=== PATIENT | female | born 1935 | race Caucasian/White ===

== ENCOUNTER 2016-05-29 10:12 | Inpatient (IN) | payer OTHER ==
[2016-04-30 10:53] VITALS: BMI 29.0
--- NOTE | 2016-04-30 11:34 | PAT Medication Instructions ---
Service Date Apr 30, 2016. Current Home Medication List Ascorbic Acid (Vitamin C 500 mg) Ascorbic Acid (Vitamin C), Unknown Dose PO QAM B-Complex W/ Folic Acid (Super B Complex Maxi), 1 TAB PO QAM Cholecalciferol (Vitamin D), 1 TAB PO QAM Diltiazem HCl (Diltiazem Cd), 1 TAB PO QAM Gabapentin (Neurontin), 100 MG PO QPM Lisinopril (Zestril), 30 MG PO QPM Magnesium Oxide (Mag-Ox), 750 MG PO BID Metoprolol Tartrate (Lopressor) (Lopressor), 0.5 TAB PO BID Medication Instructions For Your Scheduled Surgery - Hold the following medications the morning of surgery: Ascorbic Acid (Vitamin C 500 mg) Ascorbic Acid (Vitamin C), Unknown Dose PO QAM Magnesium Oxide (Mag-Ox), 750 MG PO BID Cholecalciferol (Vitamin D), 1 TAB PO QAM B-Complex W/ Folic Acid (Super B Complex Maxi), 1 TAB PO QAM - Take the following medications the morning of surgery with a sip of water: Diltiazem HCl (Diltiazem Cd), 1 TAB PO QAM Metoprolol Tartrate (Lopressor) (Lopressor), 0.5 TAB PO BID - Hold the following medications as scheduled the night before surgery: Lisinopril (Zestril), 30 MG PO QPM - Take the following medications as scheduled the night before surgery: Gabapentin (Neurontin), 100 MG PO QPM Metoprolol Tartrate (Lopressor) (Lopressor), 0.5 TAB PO BID Magnesium Oxide (Mag-Ox), 750 MG PO BID If you have any questions please call us at [phone] (Mai Dominguez PA-C) or [phone] or [phone]
--- NOTE | 2016-04-30 12:17 | DIAGNOSTIC IMAGING REPORT ---
CHEST PREADMISSION(PA/LAT) CLINICAL HISTORY: PAT preoperative evaluation COMPARISON STUDY: No previous studies for comparison. FINDINGS: The bones soft tissues and hemidiaphragms are normal. The cardiomediastinal silhouette is normal. The lungs are clear. The pulmonary vasculature is normal. IMPRESSION: Negative chest. Electronically signed by: Marshall Thomas M.D. 04/30/2016 12:15 PM
[2016-04-30 12:18] LABS: BASO % 0.5 %; BASO ABS # 0.03 K/uL (0-0.2); COMPLETE YES; EOS % 5.7 %; HEMATOCRIT 36.3 % (37-47); IG% 0.3 %; LYMPH % 30.6 %; LYMPH ABS # 1.94 K/uL (1.2-3.4); MEAN CELL VOLUME 93.1 fL (80-100); MEAN CORPUSCULAR HGB CONC 33.3 g/dl (32-36); MEAN PLATELET VOLUME 9.8 fL (7.4-10.4); NEUT % 53.9 %; PLATELET COUNT 201 K/uL (130-400); WHITE BLOOD COUNT 6.34 K/uL (4.8-10.8)
[2016-04-30 12:26] LABS: PROTHROMBIN TIME (PATIENT) 10.3 SECONDS (9.0-12.0)
[2016-04-30 12:28] LABS: URINE APPEARANCE CLEAR (CLEAR); URINE BILIRUBIN NEG (NEG); URINE COLOR YELLOW; URINE NITRITE NEG (NEG); URINE SPECIFIC GRAVITY 1.005 (1.000-1.030); UROBILINOGEN NEG (NEG)
[2016-04-30 12:44] LABS: ESTIMATED AVERAGE GLUCOSE 123 mg/dl; HA1C FLAG Normal (Normal); MANUAL MICROSCOPIC REQUIRED? NO; REVIEW REQ? NO
--- NOTE | 2016-05-28 15:53 | HISTORY & PHYSICAL EXAMINATION ---
DATE OF ADMISSION: 05/29/2016 CHIEF COMPLAINT: Right knee pain. HISTORY OF PRESENT ILLNESS: The patient is an 81-year-old female with known osteoarthritis about her right knee. She has pain with activities of daily living including prolonged weightbearing and standing activities. She has difficulty kneeling, bending, or squatting activities. She now desires to proceed with right total knee arthroplasty. PAST MEDICAL HISTORY: Hypertension, irregular heartbeat, osteoarthritis, obesity. PAST SURGICAL HISTORY: None. MEDICATIONS: Gabapentin 300 mg 3 times daily, diltiazem ER 120 mg daily, lisinopril 20 mg daily, metoprolol succinate ER 100 mg daily, magnesium oxide 500 mg 1/2 tablet daily. ALLERGIES: No known drug allergies. SOCIAL HISTORY AND REVIEW OF SYSTEMS: Noncontributory. PHYSICAL EXAMINATION: GENERAL: Well-nourished, well-developed female who appears stated age. HEENT: Normocephalic, atraumatic, extraocular movements intact, oropharynx pink and moist. NECK: Supple without adenopathy. LUNGS: Clear to auscultation bilaterally. HEART: Regular rate and rhythm. ABDOMEN: Soft, nontender, nondistended. EXTREMITIES: The upper extremities are within normal limits. The right knee has a valgus alignment. Range of motion from 0-110 degrees. She has mild crepitus with range of motion. X-RAYS: X-rays were reviewed. She has a valgus-aligned knee. She has severe osteoarthritis about the lateral compartment with bone on bone arthritis. She has moderate degenerative change about the medial and patellofemoral compartments. She has osteophyte formation about the lateral joint line. ASSESSMENT: Right knee degenerative joint disease. PLAN: Risks versus benefits were discussed. Consent was obtained. The patient's primary care physician is Dr. Villalobos. Will proceed with right total knee arthroplasty upon preop workup and medical clearance.
[2016-05-29] VITALS (9 sets, daily range): BP systolic 149–184; BP diastolic 71–84; PULSE 55–75; TEMP 35.8–36.6; O2SAT 93–98; Ht 175.3 cm; Wt 86.2 kg
[~2016-05-29] VITALS: Ht 175.3 cm; Wt 86.2 kg
[~2016-05-29 10:12] MED LIST: ACETAMINOPHEN 500 MG TAB PO SCH; ASCA500 PO; ASCO500C43 PO; B-CO-25 PO; BUPIVACAINE 0.25% 30 ML VIAL ONE; BUPIVACAINE 0.5 % 5 MG/1 ML PF 10ML VIAL ONE; CEFAZOLIN 2000 MG/60 ML D5W 60 ML IV SCH; CHOL100010 PO; CRDCD120 PO; CeleBREX 200 MG CAP PO SCH; DEXAMETHASONE 4 MG TAB PO SCH; FAMOTIDINE 20 MG TAB PO SCH; GABA-112 PO; GABAPENTIN 300 MG CAP PO SCH; LACTATED RINGER'S 1000ML IV SCH; LACTATED RINGER'S 500 ML IV SCH; LISI1TAB3 PO; MAGN400T6 PO; METO100T14 PO; METOCLOPRAMIDE HCL 10 MG TAB PO SCH; OXYCODONE HCL 10 MG TABCR (OXYCONTIN) PO SCH; ROPIVACAINE 5MG/ML 30 ML 150 MG, BUPIVACAINE/EPINEPHR 0.5% MPF 30 ML, KETOROLAC TROMETH... INFIL SCH
[2016-05-29] MEDS ORDERED: FENTANYL CITRATE INJ 50 MCG/1 ML 2 ML VIAL ONE (10:29)
[2016-05-29] MEDS ORDERED: LIDOCAINE HCL 2% 2 ML VIAL (20MG/ML) ONE (10:29)
[2016-05-29] MEDS ORDERED: MIDAZOLAM HCL 1 MG/ML 2ML VIAL ONE (10:29)
[2016-05-29] MEDS ORDERED: PROPOFOL IV EMULSION 10 MG/ML 20 ML VIAL IV ONE (10:29)
--- NOTE | 2016-05-29 10:58 | History & Physical Bridge Note ---
H&P Re-Evaluation Bridge Note: I have examined the patient, reviewed the History & Physical and in the interval since the performance of the History & Physical I have noted the following changes of clinical significance: No changes noted
[2016-05-29] MEDS ORDERED: LACTATED RINGER'S 1000ML 1,000 ML IV PRN (11:17)
[2016-05-29] MEDS ORDERED: FENTANYL CITRATE INJ 50 MCG/1 ML 2 ML VIAL IV PRN (11:30)
[2016-05-29] MEDS ORDERED: ONDANSETRON INJ 2 MG/ML 2 ML VIAL IV PRN (11:30)
[2016-05-29] MEDS: TRANEXAMIC ACID INJ 1,000 MG in SODIUM CHLORIDE 0.9% 100ML 100 ML IV SCH ×2 (11:38→15:34)
[2016-05-29] MEDS ORDERED: ORTHO JOINT ANESTHETIC ONE (12:05)
[2016-05-29] MEDS ORDERED: BACITRACIN 50000 UNIT VIAL IR ONE (12:47)
[2016-05-29] MEDS ORDERED: POVIDONE-IODINE OP SOLN 30 ML BTL TOP ONE (12:47)
--- NOTE | 2016-05-29 12:47 | [facility] Post Operative Brief Note ---
Immediate Operative Summary Operative Date May 29, 2016. Pre-Operative Diagnosis Right knee joint degenerative disease Post-Operative Diagnosis Same as Pre-Op Procedure(s) Performed Right Total Knee Arthroplasty Cemented Surgeon Dr. Ang Hawkins Cook Helper Fruit Surgeon(s) Mario Benz PA-C Estimated Blood Loss 20ml Findings valgus OA knee Specimens A. Right knee bone and tissue Disposition Recovery Room / PACU
--- NOTE | 2016-05-29 12:57 | OPERATIVE REPORT ---
DATE OF OPERATION: 05/29/2016 PREOPERATIVE DIAGNOSIS: Osteoarthritis right knee. POSTOPERATIVE DIAGNOSIS: Osteoarthritis right knee. PROCEDURE: Right total knee arthroplasty. SURGEON: Dr. Hawkins. RAZOR GRINDER: Mario Benz PA-C. ANESTHESIA: Spinal. COMPLICATIONS: None. OPERATION AND FINDINGS: Following induction of spinal anesthesia, the patient's right leg was prepped and draped in the usual sterile manner. Limb was exsanguinated with an Esmarch bandage and tourniquet was inflated to 350 mmHg. A longitudinal incision was made anteriorly. Subcutaneous tissue was sharply dissected. Electrocautery was used for hemostasis. Prepatellar bursa was incised and median parapatellar incision was performed. Patella was everted and the knee was flexed. Fat pad was removed to aid in visualization and the anterior and posterior cruciate ligaments were removed. The medial face of the tibia was cleared of soft tissue first with a Bovie and a Peters elevator. This tissue was retracted posteriorly using a blunt Hohmann. A Arguelles retractor was used to expose the synovium above on the anterior aspect of the femur and this was removed down to bone. The PSI guide was placed on the distal femur and two pins were placed anteriorly and kept in position and two additional pins were placed distally and removed. The distal femoral cutting block was placed in position and the distal femoral cut was used in the +0 setting. Next, the cutting block was removed and the femoral size 3 block was placed in the distal end of the femur. Care was taken to ensure appropriate external rotation and feeler gauge was used to ensure no notching would occur. The femoral block was centered on the distal femur and in the medial and lateral direction and was fixed using two bone screws. The gold pins were then removed. The oscillating saw was used to create the bone cuts and the distal femoral cutting block was removed and the reciprocating saw was used to further trim the femoral cuts as well as a deep in the area for the trochlear groove. Next, posterior condyle remnants were removed. Following this, a meniscal clamp and knife were utilized to remove the anterior portion of both medial and lateral meniscus. The proximal tibia PSI guide was placed into position and the proximal tibial cutting guide was screwed into position. The extra medullary alignment guide was utilized to ensure appropriate alignment. The proximal tibia was cut and the proximal tibial cutting block was removed and this bone fragment was removed. The appropriate guide was used to perform the notch cut on the distal femur and a lamina sharepoint administrator and a cochlear knife were utilized to finish both medial and lateral meniscectomies to remove any remnants of the posterior or anterior cruciate ligaments. Following this, the distal femoral component was impacted into position and blunt Coleen was used to sublux the tibia anteriorly. The proximal tibia was sized and a size 3 tibial tray was chosen as the size to be used. This was put into position and appropriate external rotation and a double check with extramedullary alignment guide was performed. The canal for the tibial stem was prepared first with a 17 mm drill and then the punch and a mallet and the trial tibial poly was placed. A tibial poly 16 was chosen the size to be used. It was brought to extension and the patella was prepared with the patellar reamer. A patella size 36 component was chosen the size to be used. The trial component was placed and knee was taken through a full range of motion and there was found to be no lateral subluxation of the tibia. No lateral release was required. The trials were all removed. The final components were obtained and assembled. Cement was mixed. The knee was thoroughly irrigated and the ortho mix was injected about the knee joint. The final components were cemented into position. After thoroughly suctioning and drying the bone ends, all excess cement was removed. The knee was held in extension while the cement hardened. The wound was irrigated and closed over a Hemovac drain. #1 Vicryl was used to close the extensor mechanism. Subcutaneous tissues closed using 0 Dexon. Skin was closed with ailin. Sterile dressing of Adaptic, 4 x 4's, sterile Webril, and Garrett was applied. The patient tolerated the procedure well. Recovery room stable. Due to the complex nature of the procedure, the entire surgery was performed with the operational assistance of Mairo Benz PA-C. The assistant film editor, under direct supervision, was involved in the actual performance of all aspects of the surgical procedure including hemostasis, tissue retraction and incision, instrument management, patient positioning, and wound closure. I attest to the content of the Intraoperative Record and any orders documented therein. Any exceptio ns are noted below.
[2016-05-29] MEDS ORDERED: MAGNESIUM HYDROXIDE SUSP 30 ML UDC PO PRN (13:30)
[2016-05-29] MEDS ORDERED: ALUMINUM/MAGNESIUM/SIMETH (MAALOX MAX) 30 ML UDC PO PRN (13:30)
[2016-05-29] MEDS ORDERED: MoRPHine SULFATE 2 MG/ML CARP IV PRN (13:30)
[2016-05-29] MEDS ORDERED: OXYCODONE HCL IR 5 MG TAB (IMMEDIATE RELEASE) PO PRN (13:30)
[2016-05-29] MEDS ORDERED: ZOLPIDEM TARTRATE 5 MG TAB PO PRN (13:30)
--- NOTE | 2016-05-29 14:05 | DIAGNOSTIC IMAGING REPORT ---
RIGHT KNEE 2 VIEWS History: Right total knee arthroplasty. Degenerative arthritis. Postop. FINDINGS: The patient is status post a right total knee arthroplasty. The hardware is intact. No fracture or dislocation. Skin ailin and surgical drains are in place. IMPRESSION: Right total knee arthroplasty. No evidence for hardware complication. Electronically signed by: Ralph Goldman M.D. 05/29/2016 2:04 PM
--- NOTE | 2016-05-29 15:09 | Anesthesiology Progress Note ---
Anesthesia Post Op Note Date & Time May 29, 2016 at 15:09 Vital Signs Pain Intensity: 0.0 Vital Signs Past 12 Hours Date Time Temp Pulse Resp B/P Pulse Ox O2 Delivery O2 Flow Rate FiO2 05/29/16 14:57 35.8 67 18 156/73 97 Nasal Cannula 2.0 05/29/16 14:30 98 Nasal Cannula 2.0 05/29/16 14:30 36.4 70 16 160/71 98 Nasal Cannula 2.0 05/29/16 14:15 68 17 145/66 99 Nasal Cannula 2 05/29/16 14:05 36.4 64 16 140/59 98 Nasal Cannula 2 05/29/16 13:55 58 19 137/64 99 Nasal Cannula 2 05/29/16 13:45 63 20 137/57 98 Nasal Cannula 2 05/29/16 13:35 61 15 129/54 98 Nasal Cannula 2 05/29/16 13:25 36.3 54 16 117/49 97 Nasal Cannula 2 05/29/16 10:38 36.6 55 18 184/71 98 Room Air Notes Mental Status: alert / awake / arousable, participated in evaluation Pt Amnestic to Procedure: Yes Nausea / Vomiting: adequately controlled Pain: adequately controlled Airway Patency, RR, SpO2: stable & adequate BP & HR: stable & adequate Hydration State: stable & adequate Neuraxial Anesthesia: was administered, sensory block is resolving Anesthetic Complications: no major complications apparent
[2016-05-29] MEDS ORDERED: MoRPHine SULFATE 10 MG/ML CARP/VIAL IV PRN (15:30)
[2016-05-29] MEDS ORDERED: MoRPHine SULFATE 4 MG/ML 1 ML CARP\\VIAL IV PRN (15:30)
[2016-05-29] MEDS: D5W AND 1/2NSS + 20MEQ KCL 1,000 ML IV SCH (15:49)
[2016-05-29] MEDS: KETOROLAC TROMETHAMINE 15 MG/ML VIAL IV. SCH ×2 (15:50→21:35)
[2016-05-29] MEDS: ONDANSETRON INJ 2 MG/ML 2 ML VIAL IV PRN (17:01)
[2016-05-29] MEDS: FERROUS GLUCONATE 324 MG TAB PO SCH (17:42)
[2016-05-29] MEDS: METOCLOPRAMIDE HCL INJ 5 MG/ML 2 ML VIAL IV PRN (20:01)
[2016-05-29] MEDS: CEFAZOLIN IV 2,000 MG in DEXTROSE 5% 50ML 50 ML IV SCH (20:21)
[2016-05-29] MEDS: OXYCODONE HCL 10 MG TABCR (OXYCONTIN) PO SCH (20:21)
[2016-05-29] MEDS: DOCUSATE SODIUM 100 MG CAP PO SCH (20:22)
[2016-05-29] MEDS: ASPIRIN 81 MG ECTAB PO SCH (20:23)
[2016-05-29] MEDS: METOPROLOL TARTRATE 50 MG TAB PO SCH (20:23)
[2016-05-29] MEDS: MAGNESIUM OXIDE 400 MG TAB PO SCH (20:24)
[2016-05-29] MEDS: GABAPENTIN 100 MG CAP PO SCH (20:24)
[2016-05-29] MEDS: LISINOPRIL 10 MG TAB PO SCH (20:25)
[2016-05-29] MEDS ORDERED: MAGNESIUM OXIDE 400 MG TAB PO SCH (21:00)
[2016-05-29] MEDS: ACETAMINOPHEN 500 MG TAB PO SCH (21:35)
[2016-05-30] VITALS (8 sets, daily range): BP systolic 149–191; BP diastolic 55–88; PULSE 53–69; TEMP 36.3–37; O2SAT 95–100
[2016-05-30] MEDS: D5W AND 1/2NSS + 20MEQ KCL 1,000 ML IV SCH ×2 (01:30→11:07)
[2016-05-30] MEDS: KETOROLAC TROMETHAMINE 15 MG/ML VIAL IV. SCH ×2 (03:35→09:30)
[2016-05-30] MEDS: CEFAZOLIN IV 2,000 MG in DEXTROSE 5% 50ML 50 ML IV SCH (03:35)
[2016-05-30] MEDS: ACETAMINOPHEN 500 MG TAB PO SCH ×3 (05:28→21:37)
[2016-05-30] MEDS: ONDANSETRON INJ 2 MG/ML 2 ML VIAL IV PRN (05:49)
[2016-05-30 06:43] LABS: HEMATOCRIT 36.1 % (37-47); MEAN CELL VOLUME 90.3 fL (80-100); MEAN CORPUSCULAR HEMOGLOBIN 31.3 pg (25-34); MEAN CORPUSCULAR HGB CONC 34.6 g/dl (32-36); MEAN PLATELET VOLUME 9.8 fL (7.4-10.4); PLATELET COUNT 225 K/uL (130-400); WHITE BLOOD COUNT 13.42 K/uL (4.8-10.8)
[2016-05-30 07:14] LABS: BUN/CREATININE RATIO 22.3 (10-20); CALCIUM 8.5 mg/dl (8.5-10.1); CREATININE 1.2 mg/dl (0.60-1.20); POTASSIUM 4.2 mmol/L (3.5-5.1)
[2016-05-30] MEDS ORDERED: DEXAMETHASONE INJ 10 MG in SYRINGE 0 ML IV SCH (07:30)
--- NOTE | 2016-05-30 07:57 | Orthopedic Progress Note ---
Orthopedic Progress Note Date of Service May 30, 2016. Subjective Post OP Day: 1 Reports: feeling well Objective N/V intact, dressing C/D/I (Hemovac d/c'd), toes mobile Date Time Temp Pulse Resp B/P Pulse Ox O2 Delivery O2 Flow Rate FiO2 05/30/16 03:47 53 16 149/75 95 Room Air 05/29/16 23:15 Room Air 05/29/16 23:08 36.4 58 16 152/75 94 Room Air 05/29/16 21:37 60 149/84 05/29/16 19:41 36.3 69 18 166/73 98 Room Air 05/29/16 17:42 36.2 72 16 165/75 93 Room Air 05/29/16 16:40 68 18 158/76 97 Nasal Cannula 2.0 05/29/16 15:45 Nasal Cannula 2.0 05/29/16 15:30 36.2 75 18 166/76 97 Nasal Cannula 2.0 05/29/16 14:57 35.8 67 18 156/73 97 Nasal Cannula 2.0 05/29/16 14:30 98 Nasal Cannula 2.0 05/29/16 14:30 36.4 70 16 160/71 98 Nasal Cannula 2.0 05/29/16 14:15 68 17 145/66 99 Nasal Cannula 2 05/29/16 14:05 36.4 64 16 140/59 98 Nasal Cannula 2 05/29/16 13:55 58 19 137/64 99 Nasal Cannula 2 05/29/16 13:45 63 20 137/57 98 Nasal Cannula 2 05/29/16 13:35 61 15 129/54 98 Nasal Cannula 2 05/29/16 13:25 36.3 54 16 117/49 97 Nasal Cannula 2 05/29/16 10:38 36.6 55 18 184/71 98 Room Air Laboratory Results 24 Hours: Test 05/30/16 05:25 Hematocrit 36.1 % Hemoglobin 12.5 g/dL Assessment & Plan Assessment: 81 yo female stable POD #1 s/p right TKA Plan: 1. Med management 2. DVT prophylaxis- ASA, TEDs, SCDs 3. PT/OT 4. D/C planning- home w/ HH
[2016-05-30] MEDS: FERROUS GLUCONATE 324 MG TAB PO SCH ×3 (08:30→17:23)
--- NOTE | 2016-05-30 08:41 | Anesthesiology Progress Note ---
Anesthesia Post Op Note Date & Time May 30, 2016 at 08:40 Vital Signs Pain Intensity: 0.0 Vital Signs Past 12 Hours Date Time Temp Pulse Resp B/P Pulse Ox O2 Delivery O2 Flow Rate FiO2 05/30/16 08:03 36.3 60 19 162/88 100 Room Air 05/30/16 07:25 Room Air 05/30/16 03:47 53 16 149/75 95 Room Air 05/29/16 23:15 Room Air 05/29/16 23:08 36.4 58 16 152/75 94 Room Air 05/29/16 21:37 60 149/84 Notes Mental Status: alert / awake / arousable, participated in evaluation Pt Amnestic to Procedure: Yes Nausea / Vomiting: adequately controlled Pain: adequately controlled Airway Patency, RR, SpO2: stable & adequate BP & HR: stable & adequate Hydration State: stable & adequate Anesthetic Complications: no major complications apparent
[2016-05-30] MEDS: METOCLOPRAMIDE HCL INJ 5 MG/ML 2 ML VIAL IV PRN (08:59)
[2016-05-30] MEDS: MULTIVITAMIN TAB PO SCH (09:00)
[2016-05-30] MEDS: DOCUSATE SODIUM 100 MG CAP PO SCH ×2 (09:00→21:33)
[2016-05-30] MEDS: PANTOprazole SOD 40 MG TAB PO SCH (09:00)
[2016-05-30] MEDS: OXYCODONE HCL 10 MG TABCR (OXYCONTIN) PO SCH ×2 (09:00→21:34)
[2016-05-30] MEDS: ASPIRIN 81 MG ECTAB PO SCH ×2 (09:26→21:34)
[2016-05-30] MEDS: MAGNESIUM OXIDE 400 MG TAB PO SCH ×2 (09:27→21:36)
[2016-05-30] MEDS: METOPROLOL TARTRATE 50 MG TAB PO SCH ×2 (09:27→21:36)
[2016-05-30] MEDS: DILTIAZEM HCL 120 MG CAPCR PO SCH (09:27)
--- NOTE | 2016-05-30 21:19 | Discharge Instructions ---
Discharge Instructions Admission Reason for Admission: Right Knee Osteoarthritis Discharge Discharge Diagnosis / Problem: s/p Right Total Knee Replacement Discharge Goals Goal(s): Decrease discomfort, Improve function, Increase independence Activity Recommendations Activity Limitations: as noted below Weightbearing Status: Right weightbearing (as tolerated) . Instructions / Follow-Up Instructions / Follow-Up ACTIVITY RECOMMENDATIONS: SELF CARE INSTRUCTIONS AFTER TOTAL KNEE REPLACEMENT A. You may need to continue a physical therapy program after discharge from the hospital. There are several options available to you. Your doctor will assist you in selecting the best one for you. 1. An out-patient facility 2 to 3 times a week for therapy or home therapy. 2. Continue working on all exercises taught to you in the hospital. Your goals should be to increase bending of your knee to 90 degrees and beyond and to fully straighten your knee. B. You may progress at your own pace from walking with a walker or crutches to a cane; then to no assistive devices. C. Make walking a part of your daily routine. Be up as much as comfortable with rest periods throughout the day. Rest with leg elevation is very important. Use the ice wrap frequently for the first 3-4 weeks. D. There are no restrictions on activities. You may ride in a car, shop, participate in wet process miller head assistant and all social activities. E. Wear the long elastic stockings (KNENEDY hose) 20 hours a day for 2 weeks after surgery. They can be removed several times a day for laundering and for a bath. F. You may shower, no tub baths until cleared by your doctor. SPECIAL CARE INSTRUCTIONS: VERY IMPORTANT TO READ AND REVIEW A. There are a few signs you need to watch for after you are home. Call [facility] if you notice any of the followin. Increased severe knee pain. Some pain is expected especially when you exercise. 2. Increased swelling in your leg or knee; pain or swelling of the calf muscle in either lower leg. 3. Any fluid drainage from the incision. 4. Shortness of breath or chest pain. B. Please call [facility] at if you have any concerns or questions about your operation or recovery. The doctor or his nurse will return your call promptly. C. You must take antibiotics before dental work, bladder, bowel or other surgery. Your doctor will provide you with a permanent care to carry describing this precaution. IMPORTANT: * REMEMBER TO TAKE ASPIRIN, 81 MG, TWICE DAILY FOR 4 WEEKS UNLESS OTHERWISE DIRECTED. THIS IS YOUR BLOOD THINNER. * HIGH RISK PATIENTS MAY BE PRESCRIBED A STRONGER BLOOD THINNER. THIS WILL BE PROVIDED AT DISCHARGE. * CALL IF INCREASED PAIN, REDNESS, DRAINAGE OR FEVER GREATER THAT 101. * WEAR KENNEDY HOSE 20 HOURS PER DAY FOR 2 WEEKS. * YOU MAY HAVE A LARGE BAND-AID LIKE DRESSING (SILVERON). THIS WILL REMAIN ON YOUR INCISION FOR 7 DAYS, THEN CAN BE REMOVED. IF INCISION IS LEAKING THROUGH DRESSING, CALL THE OFFICE . FOLLOW UP VISIT: If appointment is not already scheduled: Please call [facility] to make a follow-up appointment for 2 weeks after your surgery at . Current Hospital Diet Patient's current hospital diet: Regular Diet Discharge Diet Recommended Diet: Regular Diet Procedures Procedures Performed: Right Total Knee Arthroplasty Cemented Pending Studies Studies pending at discharge: no Laboratory Results Hemoglobin A1c Test 04/30/16 11:46 Range/Units Estimated Average Glucose 123 mg/dl Hemoglobin A1c 5.9 H 4.5-5.6 % Medical Emergencies . Who to Call and When: Medical Emergencies: If at any time you feel your situation is an emergency, please call [phone] immediately. . Non-Emergent Contact Non-Emergency issues call your: Primary Care Provider, Surgeon . "Provider Documentation" section prepared by Marshall Lancaster. VTE Core Measure Inpt VTE Proph given/why not?: Other Anticoagulation (ASA 81mg po bid x 1 month ), T.E.D. Stockings, SCD's
[2016-05-30] MEDS: LISINOPRIL 10 MG TAB PO SCH (21:34)
[2016-05-30] MEDS: GABAPENTIN 100 MG CAP PO SCH (21:35)
[2016-05-30] MEDS: CeleBREX 200 MG CAP PO SCH (21:36)
[2016-05-31 00:23] VITALS: BP 174/78
[2016-05-31] MEDS: ACETAMINOPHEN 500 MG TAB PO SCH (05:37)
--- NOTE | 2016-05-31 07:02 | Orthopedic Progress Note ---
Orthopedic Progress Note Date of Service May 31, 2016. Subjective Post OP Day: 2 Reports: feeling well, pain controlled w PO medications, Denies: SOB, calf pain , chest pain, complaints, light headedness, nausea / vomiting Objective calves soft nontender, N/V intact, capillary refill less than 2 sec., dressing C /D/I (silverlon intact), A&O x3, toes mobile Date Time Temp Pulse Resp B/P Pulse Ox O2 Delivery O2 Flow Rate FiO2 05/31/16 00:23 174/78 05/31/16 00:05 Room Air 05/30/16 23:33 36.6 62 16 191/77 96 Room Air 05/30/16 21:16 69 171/73 05/30/16 16:00 Room Air 05/30/16 15:08 37.0 64 18 165/73 99 Room Air 05/30/16 12:20 36.8 62 20 167/55 97 Room Air 05/30/16 09:24 68 173/64 05/30/16 08:42 100 Room Air 05/30/16 08:03 36.3 60 19 162/88 100 Room Air 05/30/16 07:25 Room Air Assessment & Plan Assessment: 81 yo female stable POD #2 s/p right TKA Plan: 1. Med management 2. DVT prophylaxis- ASA, TEDs, SCDs 3. PT/OT 4. D/C planning- home w/ HH Hypertension- will recheck this am, if remains high will hold on discharge. Discharge Planning Discharge Planning: home with home health DVT Prophylaxis: TEDs, SCDs, ASA Therapy: Physical Therapy
[2016-05-31] MEDS ORDERED: CLC100 PO (07:09)
[2016-05-31] MEDS ORDERED: ACET-1138 PO (07:09)
[2016-05-31] MEDS ORDERED: RXC5 PO (07:09)
[2016-05-31] MEDS ORDERED: CLB200 PO (07:09)
[2016-05-31] MEDS ORDERED: ASPEC81 PO (07:09)
[2016-05-31] MEDS ORDERED: OXYSR10 PO (07:09)
[2016-05-31] MEDS ORDERED: ONDA8TAB6 PO (07:09)
[2016-05-31 07:39] VITALS: BP 134/68; PULSE 60; TEMP 36.3; O2SAT 97
[2016-05-31 08:05] VITALS: O2SAT 97
[2016-05-31] MEDS: FERROUS GLUCONATE 324 MG TAB PO SCH (09:11)
[2016-05-31] MEDS: OXYCODONE HCL 10 MG TABCR (OXYCONTIN) PO SCH (09:11)
[2016-05-31] MEDS: MAGNESIUM OXIDE 400 MG TAB PO SCH (09:12)
[2016-05-31] MEDS: DILTIAZEM HCL 120 MG CAPCR PO SCH (09:12)
[2016-05-31] MEDS: PANTOprazole SOD 40 MG TAB PO SCH (09:12)
[2016-05-31] MEDS: MULTIVITAMIN TAB PO SCH (09:12)
[2016-05-31] MEDS: ASPIRIN 81 MG ECTAB PO SCH (09:54)
[2016-05-31] MEDS: DOCUSATE SODIUM 100 MG CAP PO SCH (09:55)
[2016-05-31] MEDS: CeleBREX 200 MG CAP PO SCH (09:55)
[2016-05-31] MEDS: METOPROLOL TARTRATE 50 MG TAB PO SCH (09:55)
[2016-05-31 10:49] VITALS: BP 160/70; PULSE 54; TEMP 36.3; O2SAT 97
--- NOTE | 2016-06-04 13:00 | DISCHARGE SUMMARY ---
CHIEF COMPLAINT: Right knee pain. Please see complete history and physical examination. HOSPITAL COURSE: The patient underwent right total knee arthroplasty without complication. She tolerated the procedure well and was discharged to recovery room in stable condition. Her postoperative course was relatively uneventful. Her postoperative pain was reasonably well controlled with a combination of spinal anesthesia, intraoperative joint injection, IV, and oral pain medications. She was started on aspirin for DVT prophylaxis. She also utilized KENNEDY stockings and SCDs for additional prophylaxis. Her H\T\H was stable and did not require transfusion. Her surgical drain was discontinued by postop day 2. Surgical dressing will remain in place for approximately 7 days postoperative. She tolerated postoperative physical therapy reasonably well where she was bending her knee and ambulating appropriately. She was discharged home on postoperative day 2. She will continue her physical therapy at home. She will continue her aspirin for DVT prophylaxis and followup in our office in approximately 10-14 days for her initial postop evaluation.
== END 2016-05-31 11:03 | disposition home health service (06) | DRG 470 ==
LOC: ENRESERVDT → ENRESERVTM → C.ACU 10:12 → C.3E 13:28
PROC: 0SRC0J9 Replacement of Right Knee Joint with Synthetic Substitute, Cemented, Open Approach (ICD-10-PCS; principal; 2016-05-29 12:30)
DX: M17.11 Unilateral primary osteoarthritis, right knee (principal); I10 Essential (primary) hypertension; E66.9 Obesity, unspecified; Z79.899 Other long term (current) drug therapy; Z68.28 Body mass index [BMI] 28.0-28.9, adult

== ENCOUNTER 2021-10-17 10:53 | Inpatient (IN) ==
[2021-10-17 11:43] LABS: Basophils # (auto) 0.02 K/uL (0-0.2); Basophils % (auto) 0.4 %; Eosinophils # (auto) 0.17 K/uL (0-0.5); Eosinophils % (auto) 3.2 %; Hematocrit (blood only) 36.7 % (37-47); Hemoglobin 12.1 g/dL (12.0-16.0); Immature Granulocytes # (auto) 0.03 K/uL (0.00-0.02); Immature Granulocytes % (auto) 0.6 %; Lymphocytes # (auto) 0.77 K/uL (1.2-3.4); Lymphocytes % (auto) 14.6 %; Mean Corpuscular Hemoglobin 30.6 pg (25-34); Mean Corpuscular Volume 92.9 fL (80-100); Mean Platelet Volume 9.5 fL (7.4-10.4); Monocytes # (auto) 0.75 K/uL (0.11-0.59); Monocytes % (auto) 14.2 %; Neutrophils # (auto) 3.55 K/uL (1.4-6.5); Platelet Count 309 K/uL (130-400); RDW Coefficient of Variation 13.3 % (11.5-14.5); Red Blood Count 3.95 M/uL (4.2-5.4); White Blood Count 5.29 K/uL (4.8-10.8)
--- NOTE | 2021-10-17 11:49 | XRay Report ---
XR chest 1V portable CLINICAL HISTORY: Dyspnea. COMPARISON STUDY: 10/31/2019 TECHNIQUE: 1 view of the chest FINDINGS: Single frontal view of the chest demonstrates the cardiomediastinal silhouette to be within normal li mits. Compared to previous examination, there has been interval development of a large right pleural effusion with compressive atelectasis/collapse involving the right lower lobe and right middle lobe. The right upper lobe remains aerated. Left hemithorax is clear. There is no evidence for left pleural effusion . There is no evidence for v ascular congestion. There is no acute osseous pathology. IMPRESSION: 1. Interval development of large right pleural effusion with right middle lobe and right lower lobe a telectasis/collapse. 2. CT of the chest with contrast is recommended for further evaluation. ACT 112: Negative or not required by law. Electronically signed by: Butch Stratton M.D. 10/17/2021 11:48 AM
[2021-10-17 12:23] LABS: Albumin Globulin Ratio 1.2 (0.9-2); Albumin Level 3.7 gm/dl (3.4-5.0); BUN Creatinine Ratio 27.7 (10-20); Bilirubin,Total 0.5 mg/dl (0.2-1.0); Calcium 9.1 mg/dl (8.5-10.1); Creatinine Clr Calc Pharmacy 45.7 ml/min; Est GFR (African American) 64.1 ml/min; Est GFR (Non-African American) 55.3 ml/min; Globulin 3.2 gm/dl (2.5-4.0); Magnesium 1.9 mg/dl (1.7-2.4); Potassium 4.4 mmol/L (3.5-5.1); Total Protein 6.9 gm/dl (6.0-8.3); Troponin I High Sensitivity 12.5 pg/ml (0-14)
--- NOTE | 2021-10-17 12:24 | History & Physical Report ---
Date of Service October 17, 2021 Assessment & Plan (1) Large pleural effusion: Plan: Unclear etiology at present but pt with significant sympoms impacting her quality of life - Admit to PCU for additional work-up - IV Lasix 20 mg x 1 dose - reeval in AM - Consult pulmonology for possible thoracentesis and additional recommendations - Check CT abd/pel to evaluate LUQ nodularity and ascites seen on outpatient CT chest - Check ECHO for further evaluation - no know history of heart failure per pt. - Incentive spirometry (2) KENT (dyspnea on exertion): (3) Prediabetes: Plan: Check A1c in AM (4) Dyslipidemia: (5) Essential hypertension: (6) CKD (chronic kidney disease) stage 3, GFR 30-59 ml/min: Plan: Continue other home medications as appropriate. Pt seen and evaluated with collaborating physician, Dr. Morel. Plan of care discussed and as outlined above. Code Status: full code DVT prophylaxis: subQ heparin Bambi Garcia PA-C History of Present Illness Chief Complaint: shortness of breath on exertion, abnormal CT chest Primary Care Provider: Melissa Paniagua MD This is an 86 y/o female with a PMH of CKD3, HTN, PVD, 1st degree AV block, dyslipidemia, prediabetes, and arthritis who presents to the ED today after she saw PCP yesterday for worsening shortness of breath and fatigue with exertion over the last several weeks. Symptoms seem to resolve with rest but are impacting pt's quality of life because limited ability to do anything. She has not had associated chest pain with exertion. CXR done in office yesterday was abnormal so CT chest ordered and showed large right pleural effusion - pt send to ED for additional evaluation. Now being referred for admission for potential thoracentesis and evaluation by pulmonology. Pt first noticed symptoms in August but is unsure if they were present prior to that because she was taking care of her partner before he in July. Initially, she attributed symptoms to being deconditioned but then noted the breathing difficulties so decided to be evaluated further. She has noted overall weakness and fatigue, loss of appetite, and 5 lb wt loss over the past four months. She has ongoing issues with sinus drainage, nasal congestion, and non-productive cough. She was started on doxycycline for possible sinus infection and Flonase for the congestion yesterday. She thinks that the Flonase may already be helping. She denies chest pain, fevers, chills, night sweats, N/V, abdominal pain, change in bowels, difficulty urinating, diarrhea. She is unsure when she had her last mammogram. Reports that she has had screening colonoscopies but is unsure when the last one was. Allergies Allergy/AdvReac Type Severity Reaction Status Date / Time aspirin Allergy Unknown Verified 10/17/21 13:50 oxycodone AdvReac Nausea Verified 10/17/21 13:50 Home Medications Medication Instructions Recorded Confirmed Type ascorbic acid (vitamin C) 500 mg 500 mg PO QAM 10/31/19 10/17/21 History tablet aspirin 81 mg tablet,delayed 81 mg PO 10/31/19 10/17/21 History release atorvastatin 10 mg tablet 10 mg PO M 10/31/19 10/17/21 History diltiazem HCl 120 mg 120 mg PO [facility] 10/31/19 10/17/21 History capsule,extended release 24 hr, controlled (DILT-XR) lisinopril 30 mg tablet 30 mg PO DAILY 10/31/19 10/17/21 History cyanocobalamin (vitamin B-12) 1,000 mcg PO DAILY 11/11/19 10/17/21 History 1,000 mcg tablet (Vitamin B-12) magnesium 250 mg tablet 250 mg PO DAILY 11/11/19 10/17/21 History cholecalciferol (vitamin D3) 25 0 mcg PO DAILY 10/17/21 10/17/21 History mcg (1,000 unit) tablet (Vitamin D3) cranberry extract 250 mg tablet 500 mg PO DAILY 10/17/21 10/17/21 History docusate sodium 100 mg tablet 100 mg PO 10/17/21 10/17/21 History doxycycline hyclate 100 mg tablet 100 mg PO [facility] 10/17/21 10/17/21 History fluticasone propionate 50 1 spray INTRANASAL [facility] 10/17/21 10/17/21 History mcg/actuation nasal spray,suspension (Flonase Allergy Relief) metoprolol tartrate 25 mg tablet 25 mg PO BID 10/17/21 10/17/21 History turmeric 400 mg capsule 400 mg PO [facility] 10/17/21 10/17/21 History Past Med/Surg History Medical History (Updated 10/17/21 @ 13:59 by Junior Christian MD) Abdominal abscess Anemia Aortic valve sclerosis AV block, 1st degree CKD (chronic kidney disease) stage 3, GFR 30-59 ml/min Coronary artery calcification seen on computed tomography Degenerative arthritis of right knee Dyslipidemia Essential hypertension Hypertension Osteoporosis Overactive bladder Peripheral vascular disease Prediabetes Surgical History History of right knee joint replacement History of tonsillectomy and adenoidectomy S/P laparoscopy Diagnostic laparoscopy in 2019 Social History Smoking Status: Never smoker Preferred Language: Divehi Feels Safe at Home: Yes Review of Systems Review of Systems: All systems reviewed & are unremarkable except as noted in HPI & below Constitutional: + fatigue, + anorexia and + weight loss; no fever, no chills and no sweats Eyes: no diplopia Ear, Nose, Mouth, Throat: + nasal congestion and + post nasal drip; no nasal discharge and no sore throat Respiratory: + cough and + dyspnea on exertion; no hemoptysis Cardiovascular: + edema (dependent - improves with elevation, none at present); no chest pain, no lightheadedness and no syncope Gastrointestinal: no abdominal pain, no nausea, no vomiting, no diarrhea/loose stools and no blood in stools Genitourinary: no dysuria and no hematuria Musculoskeletal: no back pain and no neck pain Integumentary: no yellowing of the skin Neurologic: + generalized weakness; no headache(s) Physical Exam Constitutional: + thin and + frail appearing; no acute distress Eyes: + anicteric sclerae Neck: trachea midline Respiratory: no respiratory distress Auscultation: + diminished lung sounds (right lower lung, otherwise clear) Cardiovascular: Rate/Rhythm: regular rate and regular rhythm Vessels: radial pulses present Extremities: no pedal edema Gastrointestinal (Abdomen): Inspection/Auscultation: normal bowel sounds; abdomen not distended Percussion/Palpation: abdomen soft; abdomen nontender Musculoskeletal: Head/Neck/Chest: normocephalic, head atraumatic and neck supple Extremities: no cyanosis Skin: no jaundice Neurologic: moves all extremities; no focal motor deficits Psychiatric: A+Ox3, euthymic affect Results & Data Results & Data ([facility]) Vital Signs (Past 12 Hours) Vital Signs Temp Pulse Resp BP Pulse Ox 10/17/21 11:35 66 18 96 10/17/21 11:01 36.5 C 61 16 119/63 97 Laboratory Results Laboratory Results - last 24 hr 10/17/21 10/17/21 10/17/21 11:30 11:30 11:30 WBC 5.29 RBC 3.95 L Hgb 12.1 Hct 36.7 L MCV 92.9 MCH 30.6 MCHC 33.0 RDW Std Deviation 45.0 RDW Coeff of Jaime 13.3 Plt Count 309 MPV 9.5 Immature Gran % (Auto) 0.6 Neut % (Auto) 67.0 Lymph % (Auto) 14.6 [place] % (Auto) 14.2 Eos % (Auto) 3.2 Baso % (Auto) 0.4 Neut # (Auto) 3.55 Lymph # (Auto) 0.77 L [place] # (Auto) 0.75 H Eos # (Auto) 0.17 Baso # (Auto) 0.02 Immature Gran # (Auto) 0.03 H Sodium 134 L Potassium 4.4 Chloride 97 L Carbon Dioxide 30 Anion Gap 7 BUN 26 H Creatinine 0.94 Est Cr Clr Drug Dosing 45.7 Est GFR ( Amer) 64.1 Est GFR (Non-Af Amer) 55.3 BUN/Creatinine Ratio 27.7 H Glucose 164 H Calcium 9.1 Magnesium 1.9 Total Bilirubin 0.5 AST 22 ALT 10 Alkaline Phosphatase 67 Troponin I High Sens 12.5 B-Natriuretic Peptide 290 H Total Protein 6.9 Albumin 3.7 Globulin 3.2 Albumin/Globulin Ratio 1.2 Urine Color Urine Appearance Urine pH Ur Specific [place] Urine Protein Urine Glucose (UA) Urine Ketones Urine Blood Urine Nitrite Urine Bilirubin Urine Urobilinogen Ur Leukocyte Esterase 10/17/21 11:45 WBC RBC Hgb Hct MCV MCH MCHC RDW Std Deviation RDW Coeff of Jaime Plt Count MPV Immature Gran % (Auto) Neut % (Auto) Lymph % (Auto) [place] % (Auto) Eos % (Auto) Baso % (Auto) Neut # (Auto) Lymph # (Auto) [place] # (Auto) Eos # (Auto) Baso # (Auto) Immature Gran # (Auto) Sodium Potassium Chloride Carbon Dioxide Anion Gap BUN Creatinine Est Cr Clr Drug Dosing Est GFR ( Amer) Est GFR (Non-Af Amer) BUN/Creatinine Ratio Glucose Calcium Magnesium Total Bilirubin AST ALT Alkaline Phosphatase Troponin I High Sens B-Natriuretic Peptide Total Protein Albumin Globulin Albumin/Globulin Ratio Urine Color Pending Urine Appearance Pending Urine pH Pending Ur Specific [place] Pending Urine Protein Pending Urine Glucose (UA) Pending Urine Ketones Pending Urine Blood Pending Urine Nitrite Pending Urine Bilirubin Pending Urine Urobilinogen Pending Ur Leukocyte Esterase Pending Diagnostic Findings CT Chest 10/16/21 (done outpatient) - IMPRESSION - 1. Large right pleural effusion. Mild pleural thickening at the base of the right hemithorax. Subsegmental atelectasis in the right middle lobe with near complete atelectasis of the right lower lobe. 2. Partially visualized ascites with nodularity in the left upper quadrant. Correlation with personal history of malignancy is recommended. If further characterization is desired, CT abdomen and pelvis with and without contrast could be obtained. Supervising Physician Co-Signing Physician Notes Patient is a 86-year-old female with history of hypertension, CKD, prediabetes and other medical problems presents with history of worsening shortness of breath associated with generalized weakness and fatigue which has been gradually worsening for the past few weeks. Patient also states having loss of appetite, weight loss of about 5 pounds in 4 months. Please review HPI for complete details of presentation. On exam patient is moderately built and nourished, no apparent distress, normocephalic atraumatic, EOMI, decreased breath sounds on right side, clear to auscultation, S1-S2, no murmur, no pedal edema, bradycardia, abdomen soft, nontender, normal bowel sounds, alert, awake, oriented, grossly no focal deficits. Blood work showed normal WBC count, hemoglobin 12.1, platelet count 309, sodium 134, chloride 97, glucose 164, BNP 290. COVID screen is negative. Chest x-ray showed large right pleural effusion with right middle lobe and right lower lobe atelectasis/collapse. Patient is admitted for management of right pleural effusion. Will consult pulmonology for possible thoracentesis. We will give a dose of Lasix. Check resting echo. Update A1c. Outpatient CT chest reviewed. Will obtain CT abdomen pelvis to rule any other etiologies. Supplemental oxygen, nebs as needed. Further management based on investigations. I personally reviewed the record. Patient is interviewed and examined at bedside. Patient's care is coordinated with Anjali Garcia PA-C. Please refer to the documentation above for details of patient's presentation and for discussion of other issues.
--- NOTE | 2021-10-17 13:59 | Emergency Department Note ---
Impression & Plan SOB (shortness of breath), KENT (dyspnea on exertion), Large pleural effusion ED Provider Note INFORMANT: Patient ED PROVIDER(S): Junior Christian MD CHIEF COMPLAINT: Shortness of breath PLAN: Disposition: Admitted Condition: Good Outpatient prescription management: none Referral: None MEDICAL DECISION MAKING: Patient presented because of progressive shortness of breath. She has a si gnificant right-sided pleural effusion noted. Her CBC and chemistry panel were unremarkable. ECG was negative ischemia. COVID testing negative. BNP mildly elevated. Troponin negative. Further management will be necessary in the hospital. Consultation was made with the [facility] service. Patient was evaluated in the ER admitted for further management. Triage Nursing notes reviewed and agree them. Vital Signs: reviewed and remarkable for no significant abnormalities Differential diagnosis: Reactive airway disease, pneumonia, pneumothorax, COPD, CHF, infections, cardiac ischemia, pulmonary embolism, musculoskeletal, gastrointestinal, as well as other pathologies. Diagnostics interpreted by me: ECG: Twelve-lead ECG reveals a sinus rhythm with first-degree block and PACs at 60 bpm. Poor baseline data makes interpretation difficult. No ST elevation or depression. No PVCs. Cardiac Monitoring: Cardiac monitoring ordered by me: The patient was placed on continuous cardiac monitoring and observed. It revealed a sinus bradycardic rhythm at 53 bpm with PACs. Imaging studies: Chest x-ray reveals a large right-sided pleural effusion. HPI: The patient is a 86-year old female who presents to the Emergency Room with complaints of shortness of breath. This started over the last few weeks and is worsening. Patient had a work-up initiated by the primary office. She had an x-ray performed that revealed a large right-sided effusion. She was sent for CT imaging. CT imaging shows a large right-sided pleural effusion and she was referred to the emergency department. The patient also notes the following associated symptoms, fatigue. The patient has found no relieving factors. Current pain is rated as 0/10. Pt denies LOC, headache, fevers, chills, diaphoresis, visual changes, neck pain, chest pain, nausea, vomiting, abdominal pain, back pain, melena, hematochezia, urinary symptoms, numbness, weakness, lymphadenopathy, rash, or other complaints. ROS: See above HPI for pertinent positives & negatives. A total of 10 systems reviewed and were otherwise negative. PAST MEDICAL HISTORY:See Below , hypertension PAST SURGICAL HISTORY:See Below, FAMILY HISTORY:See Below SOCIAL HISTORY:See Below, non-smoker HOME MEDICATIONS:See Below ALLERGIES:See Below VITALS:See Below PHYSICAL EXAMINATION: GENERAL: Awake, alert, well-appearing, in no distress HENT: Normocephalic, atraumatic. Oropharynx unremarkable. EYES: Normal conjunctiva. Sclera non-icteric. NECK: Inspection normal. Non-tender. Supple. No nuchal rigidity. FROM. No masses. RESPIRATORY: Diminished on the right. No wheezes. No rales. Normal respiratory effort. CARDIAC: Normal rate. Normal rhythm. No murmurs. No rubs. Extremities warm and well perfused. Pulses equal. No JVD. GI: Soft, non-distended. No tenderness to palpation. No rebound or guarding. No masses. RECTAL: Deferred. MUSCULOSKELETAL: Atraumatic. Chest examination reveals no tenderness. The back is symmetrical on inspection without obvious abnormality. There is no CVA tenderness to palpation. No joint edema. LOWER EXTREMITIES: Calves are equal size bilaterally and non-tender. No edema. No discoloration. NEURO: Normal sensorium. No sensory or motor deficits noted. SKIN: No rash or jaundice noted. Junior Christian MD Past Med/Surg History Medical History (Updated 10/17/21 @ 13:59 by Junior Christian MD) Abdominal abscess Anemia Aortic valve sclerosis AV block, 1st degree CKD (chronic kidney disease) stage 3, GFR 30-59 ml/min Coronary artery calcification seen on computed tomography Degenerative arthritis of right knee Dyslipidemia Essential hypertension Hypertension Osteoporosis Overactive bladder Peripheral vascular disease Prediabetes Surgical History History of right knee joint replacement History of tonsillectomy and adenoidectomy S/P laparoscopy Diagnostic laparoscopy in 2019 Social History Smoking Status: Never smoker Preferred Language: Ethiopian Feels Safe at Home: Yes Allergies Allergies Allergy/AdvReac Type Severity Reaction Status Date / Time aspirin Allergy Unknown Verified 10/17/21 13:50 oxycodone AdvReac Nausea Verified 10/17/21 13:50 Home Meds Home Medications Medication Instructions Recorded Confirmed ascorbic acid (vitamin C) 500 mg 500 mg PO QAM 10/31/19 10/17/21 tablet aspirin 81 mg tablet,delayed 81 mg PO 10/31/19 10/17/21 release atorvastatin 10 mg tablet 10 mg PO QAM 10/31/19 10/17/21 diltiazem HCl 120 mg 120 mg PO QAM 10/31/19 10/17/21 capsule,extended release 24 hr, controlled (DILT-XR) lisinopril 30 mg tablet 30 mg PO DAILY 10/31/19 10/17/21 cyanocobalamin (vitamin B-12) 1,000 mcg PO DAILY 11/11/19 10/17/21 1,000 mcg tablet (Vitamin B-12) magnesium 250 mg tablet 250 mg PO DAILY 11/11/19 10/17/21 cholecalciferol (vitamin D3) 25 0 mcg PO DAILY 10/17/21 10/17/21 mcg (1,000 unit) tablet (Vitamin D3) cranberry extract 250 mg tablet 500 mg PO DAILY 10/17/21 10/17/21 docusate sodium 100 mg tablet 100 mg PO 10/17/21 10/17/21 doxycycline hyclate 100 mg tablet 100 mg PO [facility] 10/17/21 10/17/21 fluticasone propionate 50 1 spray [facility]TRA[facility]SAL [facility] 10/17/21 10/17/21 mcg/actuation nasal spray,suspension (Flonase Allergy Relief) metoprolol tartrate 25 mg tablet 25 mg PO BID 10/17/21 10/17/21 turmeric 400 mg capsule 400 mg PO [facility] 10/17/21 10/17/21 Results & Data (ED) Vital Signs Vital Signs - 24 hr 10/17/21 11:01 10/17/21 11:14 10/17/21 11:35 Temperature 36.5 C Temperature Source Temporal Artery Scan Pulse Rate 61 66 Respiratory Rate 16 18 Respiratory Effort / Characteristics Non-Labored Spontaneous Non-Labored Respiratory Depth Normal Normal Respiratory Pattern Regular Blood Pressure 119/63 Blood Pressure Mean 81 Blood Pressure Position Sitting Pulse Oximetry 97 96 Oxygen Delivery Method Room Air Room Air Sepsis Recent Fever Within 48 Hours No Sepsis New/Unexplained Change in Mental Status No Sepsis Action Taken by Nursing No Action Required Laboratory Data Result diagrams: 10/17/21 11:30 10/17/21 11:30 Lab Results 10/17/21 10/17/21 10/17/21 Range/Units 11:30 11:30 11:30 WBC 5.29 (4.8-10.8) K/uL RBC 3.95 L (4.2-5.4) M/uL Hgb 12.1 (12.0-16.0) g/dL Hct 36.7 L (37-47) % MCV 92.9 (80-100) fL MCH 30.6 (25-34) pg MCHC 33.0 (32-36) g/dL RDW Std Deviation 45.0 (36.4-46.3) fL RDW Coeff of Jaime 13.3 (11.5-14.5) % Plt Count 309 (130-400) K/uL MPV 9.5 (7.4-10.4) fL Immature Gran % (Auto) 0.6 % Neut % (Auto) 67.0 % Lymph % (Auto) 14.6 % Sac % (Auto) 14.2 % Eos % (Auto) 3.2 % Baso % (Auto) 0.4 % Neut # (Auto) 3.55 (1.4-6.5) K/uL Lymph # (Auto) 0.77 L (1.2-3.4) K/uL Sac # (Auto) 0.75 H (0.11-0.59) K/uL Eos # (Auto) 0.17 (0-0.5) K/uL Baso # (Auto) 0.02 (0-0.2) K/uL Immature Gran # (Auto) 0.03 H (0.00-0.02) K/uL Sodium 134 L (136-145) mmol/L Potassium 4.4 (3.5-5.1) mmol/L Chloride 97 L (98-107) mmol/L Carbon Dioxide 30 (21-32) mmol/L Anion Gap 7 (3-11) BUN 26 H (6-23) mg/dl Creatinine 0.94 (0.6-1.2) mg/dl Est Cr Clr Drug Dosing 45.7 ml/min Est GFR ( Amer) 64.1 ml/min Est GFR (Non-Af Amer) 55.3 ml/min BUN/Creatinine Ratio 27.7 H (10-20) Glucose 164 H (70-99(Fasting)) mg/dl Calcium 9.1 (8.5-10.1) mg/dl Magnesium 1.9 (1.7-2.4) mg/dl Total Bilirubin 0.5 (0.2-1.0) mg/dl AST 22 (13-39) U/L ALT 10 (7-52) U/L Alkaline Phosphatase 67 (34-104) U/L Troponin I High Sens 12.5 (0-14) pg/ml B-Natriuretic Peptide 290 H (0-100) pg/ml Total Protein 6.9 (6.0-8.3) gm/dl Albumin 3.7 (3.4-5.0) gm/dl Globulin 3.2 (2.5-4.0) gm/dl Albumin/Globulin Ratio 1.2 (0.9-2) Urine Color Urine Appearance Urine pH Ur Specific [place] Urine Protein Urine Glucose (UA) Urine Ketones Urine Blood Urine Nitrite Urine Bilirubin Urine Urobilinogen Ur Leukocyte Esterase Urine WBC (Auto) Urine RBC (Auto) U Hyaline Cast (Auto) U Epithel Cells (Auto) Urine Bacteria (Auto) Ur Renal Epithelial Cell Urine Crystals Calcium Oxalate Crystal Uric Acid Crystals Triple Phos Crystals Other Crystals Amorphous Sediment Granular Casts Waxy Casts RBC Casts WBC Casts Other Casts Urine Mucus Urine Other Urine Trichomonas Urine Yeast Urine Sperm Ur Oval Fat Bodies SARS-CoV-2, RNA, NAAT (NEGATIVE) 10/17/21 10/17/21 Range/Units 11:45 13:55 WBC (4.8-10.8) K/uL RBC (4.2-5.4) M/uL Hgb (12.0-16.0) g/dL Hct (37-47) % MCV (80-100) fL MCH (25-34) pg MCHC (32-36) g/dL RDW Std Deviation (36.4-46.3) fL RDW Coeff of Jaime (11.5-14.5) % Plt Count (130-400) K/uL MPV (7.4-10.4) fL Immature Gran % (Auto) % Neut % (Auto) % Lymph % (Auto) % Sac % (Auto) % Eos % (Auto) % Baso % (Auto) % Neut # (Auto) (1.4-6.5) K/uL Lymph # (Auto) (1.2-3.4) K/uL Sac # (Auto) (0.11-0.59) K/uL Eos # (Auto) (0-0.5) K/uL Baso # (Auto) (0-0.2) K/uL Immature Gran # (Auto) (0.00-0.02) K/uL Sodium (136-145) mmol/L Potassium (3.5-5.1) mmol/L Chloride (98-107) mmol/L Carbon Dioxide (21-32) mmol/L Anion Gap (3-11) BUN (6-23) mg/dl Creatinine (0.6-1.2) mg/dl Est Cr Clr Drug Dosing ml/min Est GFR ( Amer) ml/min Est GFR (Non-Af Amer) ml/min BUN/Creatinine Ratio (10-20) Glucose (70-99(Fasting)) mg/dl Calcium (8.5-10.1) mg/dl Magnesium (1.7-2.4) mg/dl Total Bilirubin (0.2-1.0) mg/dl AST (13-39) U/L ALT (7-52) U/L Alkaline Phosphatase (34-104) U/L Troponin I High Sens (0-14) pg/ml B-Natriuretic Peptide (0-100) pg/ml Total Protein (6.0-8.3) gm/dl Albumin (3.4-5.0) gm/dl Globulin (2.5-4.0) gm/dl Albumin/Globulin Ratio (0.9-2) Urine Color Cancelled Urine Appearance Cancelled Urine pH Cancelled Ur Specific [place] Cancelled Urine Protein Cancelled Urine Glucose (UA) Cancelled Urine Ketones Cancelled Urine Blood Cancelled Urine Nitrite Cancelled Urine Bilirubin Cancelled Urine Urobilinogen Cancelled Ur Leukocyte Esterase Cancelled Urine WBC (Auto) Cancelled Urine RBC (Auto) Cancelled U Hyaline Cast (Auto) Cancelled U Epithel Cells (Auto) Cancelled Urine Bacteria (Auto) Cancelled Ur Renal Epithelial Cell Cancelled Urine Crystals Cancelled Calcium Oxalate Crystal Cancelled Uric Acid Crystals Cancelled Triple Phos Crystals Cancelled Other Crystals Cancelled Amorphous Sediment Cancelled Granular Casts Cancelled Waxy Casts Cancelled RBC Casts Cancelled WBC Casts Cancelled Other Casts Cancelled Urine Mucus Cancelled Urine Other Cancelled Urine Trichomonas Cancelled Urine Yeast Cancelled Urine Sperm Cancelled Ur Oval Fat Bodies Cancelled SARS-CoV-2, RNA, NAAT NEGATIVE (NEGATIVE) Imaging Data Radiologist's Impression: Chest X-Ray 10/17/21 11:21 XR chest 1V portable CLINICAL HISTORY: Dyspnea. COMPARISON STUDY: 10/31/2019 TECHNIQUE: 1 view of the chest FINDINGS: Single frontal view of the chest demonstrates the cardiomediastinal silhouette to be within normal limits. Compared to previous examination, there has been interval development of a large right pleural effusion with compressive atelectasis/collapse involving the right lower lobe and right middle lobe. The right upper lobe remains aerated. Left hemithorax is clear. There is no evidence for left pleural effusion . There is no evidence for vascular congestion. There is no acute osseous pathology. IMPRESSION: 1. Interval development of large right pleural effusion with right middle lobe and right lower lobe atelectasis/collapse. 2. CT of the chest with contrast is recommended for further evaluation. ACT 112: Negative or not required by law. Electronically signed by: Butch Stratton M.D. 10/17/2021 11:48 AM Discharge Plan Visit Data Chief Complaint: Referred by Doctor Stated Complaint: REF, FLUID AROUND LUNG AND LIVER, FATIGUE ED Provider: Junior Christian Discharge Problem: SOB (shortness of breath), KENT (dyspnea on exertion), Large pleural effusion Forms Stand Alone Forms: My [facility] Prescriptions Prescriptions: No Action atorvastatin 10 mg Tablet 10 mg PO QAM RF: 0 aspirin 81 mg Tablet,Delayed Release (Dr/Ec) 81 mg PO HS RF: 0 ascorbic acid (vitamin C) 500 mg Tablet 500 mg PO QAM RF: 0 diltiazem HCl [DILT-XR] 120 mg Capsule,Ext.Rel 24h Degradable 120 mg PO QAM RF: 0 lisinopril 30 mg Tablet 30 mg PO DAILY RF: 0 cyanocobalamin (vitamin B-12) [Vitamin B-12] 1,000 mcg Tablet 1,000 mcg PO DAILY RF: 0 magnesium 250 mg Tablet 250 mg PO DAILY RF: 0 metoprolol tartrate 25 mg Tablet 25 mg PO BID RF: 0 fluticasone propionate [Flonase Allergy Relief] 50 mcg/actuation [place],Suspension 1 spray INTRANASAL [facility] RF: 0 doxycycline hyclate 100 mg Tablet 100 mg PO [facility] RF: 0 docusate sodium 100 mg Tablet 100 mg PO HS RF: 0 cranberry extract 250 mg Tablet 500 mg PO DAILY RF: 0 cholecalciferol (vitamin D3) [Vitamin D3] 25 mcg (1,000 unit) Tablet 0 mcg PO DAILY RF: 0 turmeric 400 mg Capsule 400 mg PO AMP[facility] RF: 0 Referrals Referrals: Melissa Paniagua MD [Primary Care Provider] -
[2021-10-17 15:44] LABS: Appearance Urine Clear (Clear); Bacteria Urine Automated Negative (Negative); Bilirubin Urine Negative (Negative); Blood Urine Negative (Negative); Cast Urine Automated 0 /lpf (0-5); Color Urine Yellow; Glucose Urine UA Negative (Negative); Ketones Urine Negative (Negative); Leukocyte Esterase Urine 1+ (Negative); Nitrite Urine Negative (Negative); Protein Urine Negative (Negative); RBC Urine Automated 0-4 /hpf (0-4); Specific Gravity Urine 1.012 (1.000-1.030); Urobilinogen Urine Negative (Negative); pH Urine 7.5 (4.5-7.5)
[2021-10-17] MEDS ORDERED: FUROSEMIDE INJ 20 MG/2 ML VIAL IV ONE (16:32)
[2021-10-17] MEDS ORDERED: ALBUT/IPRATROP 3MG/0.5MG NEB 3 ML VIAL NEB PRN (16:32)
[2021-10-17] MEDS ORDERED: ACETAMINOPHEN 325 MG TAB PO PRN (16:32)
[2021-10-17] MEDS ORDERED: NITROGLYCERIN SL 0.4 MG/TAB TAB SL PRN (16:32)
[2021-10-17] MEDS ORDERED: OPTIRAY 320 100ml IV ONE (18:42)
--- NOTE | 2021-10-17 18:51 | CT Scan Report ---
CT abdomen pelvis wo/w con HISTORY: LUQ ascites/nodularity on CT chest - ?malignancy TECHNIQUE: Multiaxial CT images of the abdomen and pelvis were performed both before and after the in travenous administration of contrast. COMPARISON STUDY: Abdomen and pelvis CT 11/11/2019. FINDINGS: Mild enhancement and mild thickening within the right pleural lining with associated modera te to large right pleural effusion. Focal soft tissue nodule within the right basilar pleural and darrell ge 192 measuring 1.5 cm. This is consistent with a metastatic focus. There is compressive atelectasis within the right lower lobe. No pneumoperitoneum. No pneumatosis. Stable small bone island within th e left posterior iliac bone. No suspicious lytic or blastic osseous lesions. There is an 8 mm right a nterior diaphragmatic lymph node which remains stable. Cholelithiasis. No hepatic or splenic lesions. The adrenal glands and pancreas unremarkable. No hydronephrosis. Stable bilateral renal hypodense le sions likely representing cysts. No retroperitoneal lymphadenopathy. Moderate calcified plaque within the normal caliber abdominal aorta. No retroperitoneal or pelvic lymphadenopathy. There is a punctat e focus of gas within the bladder lumen. This may be due to prior catheterization. The uterus is unre markable. Colonic diverticulosis. No evidence for acute diverticulitis. No bowel wall thickening or o bstruction. Trace perihepatic ascites. There are multiple omental soft tissue nodules/caking consiste nt with peritoneal carcinomatosis. There is also mild nodular thickening within the peritoneal lining of the pelvis and involving the bilateral adnexa. Extensive peritoneal soft tissues along the unders urface of the liver are also noted. IMPRESSION: 1. Above findings consistent with peritoneal carcinomatosis. 2. Moderate to large right pleural effusion with mild nodular thickening at the base of the right ple ural consistent with metastatic disease. 3. Additional findings as described above. ACT 112: Negative or not required by law. Electronically signed by: Ralph Goldman M.D. 10/17/2021 6:49 PM
[2021-10-17] MEDS: HEPARIN SOD 5,000 UNIT/0.5 ML VIAL SQ SCH (20:33)
[2021-10-17] MEDS: DOXYCYCLINE HYCLATE 100 MG CAP PO SCH (20:35)
[2021-10-17] MEDS: FLUTICASONE PROPIONATE NA SPR 16 GM BTL SCH (20:35)
[2021-10-17] MEDS ORDERED: DOCUSATE SODIUM 100 MG CAP PO SCH (21:00)
[2021-10-17] MEDS ORDERED: ASPIRIN 81 MG ECTAB PO SCH (21:00)
[2021-10-17] MEDS ORDERED: METOPROLOL TARTRATE 25 MG TAB PO SCH (21:00)
[2021-10-18 06:27] LABS: Hematocrit (blood only) 35.6 % (37-47); Hemoglobin 11.6 g/dL (12.0-16.0); Mean Corpuscular Hemoglobin 30.1 pg (25-34); Mean Corpuscular Hgb Conc 32.6 g/dL (32-36); Mean Corpuscular Volume 92.2 fL (80-100); Mean Platelet Volume 9.7 fL (7.4-10.4); Platelet Count 248 K/uL (130-400); RDW Coefficient of Variation 13.2 % (11.5-14.5); RDW Standard Deviation 44.4 fL (36.4-46.3); Red Blood Count 3.86 M/uL (4.2-5.4)
--- NOTE | 2021-10-18 06:33 | Electrocardiogram Report ---
Test Reason : Blood Pressure : / mmHG Vent. Rate : 060 BPM Atrial Rate : 070 BPM P-R Int : 000 ms QRS Dur : 078 ms QT Int : 450 ms P-R-T Axes : 000 041 063 degrees QTc Int : 450 ms Possible Sinus rhythm with 1st degree A-V block Premature supraventricular complexes Otherwise normal ECG When compared with ECG of 31-OCT-2019 10:25, MO interval has increased Confirmed by Armando Coburn ([id number]) on 10/18/2021 6:33:18 AM Referred By: ED Confirmed By:Armando Coburn
[2021-10-18 06:54] LABS: Calcium 8.9 mg/dl (8.5-10.1); Creatinine Clr Calc Pharmacy 46.2 ml/min; Magnesium 1.8 mg/dl (1.7-2.4); Potassium 4.2 mmol/L (3.5-5.1)
[2021-10-18 07:09] LABS: Estimated Average Glucose 123 mg/dl; Hemoglobin A1C 5.9 % (4.5-5.6)
[2021-10-18] MEDS: FLUTICASONE PROPIONATE NA SPR 16 GM BTL SCH (07:26)
--- NOTE | 2021-10-18 08:26 | Cardiology Consultation ---
Date of Consultation October 18, 2021 Assessment & Plan (1) KENT (dyspnea on exertion): (2) Large pleural effusion: Patient initially presented with shortness of breath to PCP office. CT of chest showed large right pleural effusions. 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 Given source of pleural effusion Augusto not believe further IV Lasix will be beneficial. Appreciate pulmonary input for possible thoracentesis. Goals of care should be discussed with this patient. Patient may benefit from a palliative care consult. will defer to primary team. Case discussed with Dr. Rodrigues. Supervising Physician Co-Signing Physician Notes I have seen and examined the patient. I reviewed the medical record and discussed the case with the nurse practitioner. I agree that this pleural effusion is unlikely to be due to heart failure and will resolve with diuretics. The patient is best served with a thoracentesis. History of Present Illness Reason for Consultation: KENT, Large right pleural effusion Requesting Physician: Michael headley Attending Physician: Janny Braswell MD History of Present Illness Medically complex 86-year-old female. Follows with Dr. Weber as an outpatient- last seen in the clinic March 2021. Seen by PCP yesterday due to worsening shortness of breath and fatigue that s tarted in August.Outpatient chest x-ray was abnormal, CT scan showed large right pleural effusion and ascites with nodularity in the left upper quadrant and patient was sent to the emergency department for further care. She also describes fatigue, loss of appetite, and a 5 pound weight loss over the last few months. Patient was admitted to PCU and given 20 mg of IV Lasix x1. Pulmonary medicine consulted for possible thoracentesis. CT of the abdomen consistent with peritoneal carcinomatosis, moderate to large right pleural effusion with mild nodular thickening at the base of the right ple ural consistent with metastatic disease EKG showed sinus rhythm with a long first-degree, 59 bpm Echo done 10/10: LVEF 60 to 64%. No WMA. Aortic sclerosis without stenosis. Mild MR and TR mild pulmonary hypertension with PA systolic pressure 40 mmHg Upon entrance into the room patient was resting comfortable. Continues to be short of breath and fatigued despite IV Lasix yesterday. No chest pain, dizziness, or palpitations. PMH: Coronary artery calcifications seen on CT scan, asymptomatic Dyslipidemia Aortic valve sclerosis Hypertension GERD Hx of Abdominal cyst. Allergies Allergy/AdvReac Type Severity Reaction Status Date / Time aspirin AdvReac Intermediate stomach Verified 10/17/21 19:21 irritation oxycodone AdvReac Nausea Verified 10/17/21 13:50 Home Medications Medication Instructions Recorded Confirmed Type ascorbic acid (vitamin C) 500 mg 500 mg PO QAM 10/31/19 10/17/21 History tablet aspirin 81 mg tablet,delayed 81 mg PO 10/31/19 10/17/21 History release atorvastatin 10 mg tablet 10 mg PO QAM 10/31/19 10/17/21 History diltiazem HCl 120 mg 120 mg PO QAM 10/31/19 10/17/21 History capsule,extended release 24 hr, controlled (DILT-XR) lisinopril 30 mg tablet 30 mg PO DAILY 10/31/19 10/17/21 History cyanocobalamin (vitamin B-12) 1,000 mcg PO DAILY 11/11/19 10/17/21 History 1,000 mcg tablet (Vitamin B-12) magnesium 250 mg tablet 250 mg PO DAILY 11/11/19 10/17/21 History cholecalciferol (vitamin D3) 25 25 mcg PO DAILY 10/17/21 10/17/21 History mcg (1,000 unit) tablet (Vitamin D3) cranberry extract 250 mg tablet 500 mg PO DAILY 10/17/21 10/17/21 History docusate sodium 100 mg tablet 100 mg PO 10/17/21 10/17/21 History doxycycline hyclate 100 mg tablet 100 mg PO [facility] 10/17/21 10/17/21 History fluticasone propionate 50 1 spray INTRANASAL [facility] 10/17/21 10/17/21 History mcg/actuation nasal spray,suspension (Flonase Allergy Relief) metoprolol tartrate 25 mg tablet 25 mg PO BID 10/17/21 10/17/21 History turmeric 400 mg capsule 400 mg PO AMP 10/17/21 10/17/21 History Patient History Medical History (Updated 10/17/21 @ 13:59 by Junior Christian MD) Abdominal abscess Anemia Aortic valve sclerosis AV block, 1st degree CKD (chronic kidney disease) stage 3, GFR 30-59 ml/min Coronary artery calcification seen on computed tomography Degenerative arthritis of right knee Dyslipidemia Essential hypertension Hypertension Osteoporosis Overactive bladder Peripheral vascular disease Prediabetes Surgical History History of right knee joint replacement History of tonsillectomy and adenoidectomy S/P laparoscopy Diagnostic laparoscopy in 2019 Social History Smoking Status: Never smoker Second Hand Exposure: No; Do You Dip or Chew Tobacco: No; Tobacco Cessation Education Requested by Patient: No Hx Alcohol Use: Yes Alcohol type: wine Hx Substance Use: No Preferred Language: [place] Communication Ability: Effective Manufacturing Worker Required: No Beliefs That Will Affect Care: None Current Living Situation: Alone Other Information That Helps Us Care for You: No Feels Safe at Home: Yes Safety Concerns: Feels Safe At This Time Assistive Devices: Cane and Hearing Aid - Bilateral Review of Systems Review of Systems: All systems reviewed & are unremarkable except as noted in HPI & below Physical Exam Physical Exam: General: No acute distress. A+Ox3. HEENT: Normocephalic. Atraumatic. Conjunctiva and sclera clear. NECK: No carotid bruits. No JVD. Carotid upstrokes are brisk. Heart: RRR. S1 and S2 note. +faint systolic murmur Lungs: Clear to auscultation. Diminished right lung base Abdomen: Normal bowel sounds. Soft. Nontender. No masses or organomegaly. No abdominal bruits. Extremities: No edema. No clubbing or cyanosis. Pulses: radial=2/4, posterior tibial=2/4, dorsalis pedis = 2/4. NEURO: No focal deficits. PSYCH: Normal. Results & Data ([facility]) Vital Signs (Past 12 Hours) Vital Signs Temp Pulse Pulse Resp BP Pulse Ox 10/18/21 06:53 36.8 C 67 18 166/71 H 93 10/18/21 04:23 36.6 C 67 18 168/87 H 92 10/17/21 23:22 36.6 C 62 18 157/62 H 94 10/17/21 22:20 52 L Laboratory Results Cardiac Enzymes 10/17/21 10/17/21 Range/Units 11:30 11:30 AST 22 (13-39) U/L Troponin I High Sens 12.5 (0-14) pg/ml B-Natriuretic Peptide 290 H (0-100) pg/ml Coagulation 10/17/21 Range/Units 11:30 B-Natriuretic Peptide 290 H (0-100) pg/ml CBC 10/17/21 10/18/21 Range/Units 11:30 05:48 WBC 5.29 3.50 L (4.8-10.8) K/uL RBC 3.95 L 3.86 L (4.2-5.4) M/uL Hgb 12.1 11.6 L (12.0-16.0) g/dL Hct 36.7 L 35.6 L (37-47) % Plt Count 309 248 (130-400) K/uL Neut # (Auto) 3.55 (1.4-6.5) K/uL Lymph # (Auto) 0.77 L (1.2-3.4) K/uL Woodruff # (Auto) 0.75 H (0.11-0.59) K/uL Eos # (Auto) 0.17 (0-0.5) K/uL Baso # (Auto) 0.02 (0-0.2) K/uL Comprehensive Metabolic Panel 10/17/21 10/18/21 Range/Units 11:30 05:48 Sodium 134 L 134 L (136-145) mmol/L Potassium 4.4 4.2 (3.5-5.1) mmol/L Chloride 97 L 99 (98-107) mmol/L Carbon Dioxide 30 28 (21-32) mmol/L BUN 26 H 27 H (6-23) mg/dl Creatinine 0.94 0.93 (0.6-1.2) mg/dl Glucose 164 H 106 H (70-99(Fasting)) mg/dl Calcium 9.1 8.9 (8.5-10.1) mg/dl AST 22 (13-39) U/L ALT 10 (7-52) U/L Alkaline Phosphatase 67 (34-104) U/L Total Protein 6.9 (6.0-8.3) gm/dl Albumin 3.7 (3.4-5.0) gm/dl Intake and Output 10/17/21 10/18/21 10/18/21 22:59 06:59 14:59 Intake Total 200 / 200 Balance 200 / 200 Intake: Oral 200 / 200 Other: # Unmeasured Voids 1 1 Weight 74 kg 75.8 kg Weight Measurement Method Built in Bedscale Built in Bedscale Diagnostic Findings Echo outpatient 10/10/2021 The examination is adequate to evaluate the referral indication. The qualitative LV ejection fraction is 60-64% (normal). The aortic valve is mildly calcified. There is aortic valve sclerosis without stenosis. There is severe mitral annular calcification. Borderline mild mitral valve stenosis. Mild mitral regurgitation is present. Mild tricuspid regurgitation is present. The estimated pulmonary artery systolic pressure is 40mm Hg. Compared to last available study changes are noted as follows: Mild pulmonary hypertension now present.
[2021-10-18] MEDS: DOXYCYCLINE HYCLATE 100 MG CAP PO SCH (08:56)
[2021-10-18] MEDS: HEPARIN SOD 5,000 UNIT/0.5 ML VIAL SQ SCH ×2 (08:56→13:27)
[2021-10-18] MEDS ORDERED: ATORVASTATIN 10 MG TAB PO SCH (09:00)
[2021-10-18] MEDS ORDERED: MAGNESIUM OXIDE 400 MG TAB PO SCH (09:00)
[2021-10-18] MEDS ORDERED: CHOLECALCIFEROL 1,000 UNITS 25 MCG TAB PO SCH ×2 (09:00)
[2021-10-18] MEDS ORDERED: lisinopril 10 MG TAB PO SCH (09:00)
[2021-10-18] MEDS ORDERED: dilTIAZem HCL 120 MG CAPCR PO SCH (09:00)
[2021-10-18 09:14] LABS: Prothrombin Time 10.7 Seconds (9.0-12.0)
--- NOTE | 2021-10-18 13:40 | Procedure Note ---
Procedure Note Date of Service October 18, 2021 Note Procedure: Diagnostic and/or therapeutic ultrasound-guided catheter thoracentesis Information Technology Manager: Dr. Werner Baxter Indication: Pleural effusion Consent: Signed by patient and verified with timeout prior to procedure Anesthesia: 8 mL's of 1% lidocaine without epinephrine given locally Procedure: Consent was verified and timeout performed. Appropriate imaging studies were reviewed prior to the procedure. Patient was placed in a seated position and limited thoracic ultrasound was performed of the right lateral chest. See separate imaging. The site appropriate for thoracentesis was selected. The skin was prepped and draped in normal sterile fashion. Lidocaine was used for local analgesia. Fluid was aspirated via the finder needle. A small skin reed was made with the scalpel and the catheter over the needle apparatus was advanced over the rib into the pleural space. Using the syringe one-way valve system, a total of 1650 mL's of serosanguineous fluid was removed. Procedure was terminated due to coughing. The catheter was removed and observed to be intact. A sterile dressing was applied. Post procedure chest x-ray was ordered. Fluid was sent for LDH, total protein, cell count, glucose, pH, cytology, AFB cu ltures, gram stain and culture and fungal cultures. The patient tolerated the procedure well without obvious complication. Coding CPT Codes Pulmonary/Thoracic - Pulmonary and Thoracic: 47032 Thoracentesis w imaging ([id number]) [facility] [place] Procedure Codes (Charges) Pulmonary/Thoracic Procedure 1: Pulmonary and Thoracic: 18461 Thoracentesis w imaging
[2021-10-18 13:59] LABS: Total Protein Pleural Fluid 4.9 gm/dl
--- NOTE | 2021-10-18 14:00 | XRay Report ---
XR chest 1V portable CLINICAL HISTORY: r/o pneumothorax TECHNIQUE: Single frontal radiograph of the chest was obtained. Comparison: Comparison is made to chest radiograph 526 2 FINDINGS: No lines and tubes are seen. The cardiomediastinal silhouette is normal. The lungs are clear. Signifi cant interval decrease in right pleural effusion which is now small in size. No evidence of pneumotho rax is seen. IMPRESSION: Small right pleural effusion, similarly decreased from prior exam. No pneumothorax. ACT 112: Negative or not required by law. Electronically signed by: Tony Canales M.D. 10/18/2021 1:59 PM
--- NOTE | 2021-10-18 14:01 | Pulmonary Consultation ---
Date of Consultation October 18, 2021 Assessment & Plan (1) Large pleural effusion: (2) SOB (shortness of breath): 86-year-old female with a concern for peritoneal carcinomatosis and a large right pleural effusion that appears to be malignant. Thoracentesis performed at bedside with 1.65 L removed. This will be sent for cell counts, cultures and cytology. Post procedure chest x-ray demonstrates significant decrease in size of right pleural effusion. There is a strong possibility that this effusion may recur and she may need a Pleurx catheter in the future. Patient is aware that this effusion has a high probability of being malignant. I think she is stable for discharge at this time. This was communicated to the hospitalist. Thank you for allowing us to participate in the care of this patient. Please call with questions. History of Present Illness Reason for Consultation: Large right pleural effusion Attending Physician: Janny Braswell MD History of Present Illness 86-year-old female with no significant past medical history aside for hypertension who presented to the hospital due to shortness of breath for the last several weeks. She also notes a 5 pound weight loss over the past month. She denies any history of malignancy. She had a CT of her abdomen performed in the ER which demonstrated concerns for peritoneal carcinomatosis. Chest x-ray demonstrated a large right pleural effusion. Apparently there was a CT chest done at [facility] with the [facility] facility which I do not have access to. Patient denies any chest pain, fevers, chills or night sweats. Cough is minimal. Allergies Allergy/AdvReac Type Severity Reaction Status Date / Time aspirin AdvReac Intermediate stomach Verified 10/17/21 19:21 irritation oxycodone AdvReac Nausea Verified 10/17/21 13:50 Home Medications Medication Instructions Recorded Confirmed Type ascorbic acid (vitamin C) 500 mg 500 mg PO QAM 10/31/19 10/17/21 History tablet aspirin 81 mg tablet,delayed 81 mg PO HS 10/31/19 10/17/21 History release atorvastatin 10 mg tablet 10 mg PO QAM 10/31/19 10/17/21 History diltiazem HCl 120 mg 120 mg PO QAM 10/31/19 10/17/21 History capsule,extended release 24 hr, controlled (DILT-XR) lisinopril 30 mg tablet 30 mg PO DAILY 10/31/19 10/17/21 History cyanocobalamin (vitamin B-12) 1,000 mcg PO DAILY 11/11/19 10/17/21 History 1,000 mcg tablet (Vitamin B-12) magnesium 250 mg tablet 250 mg PO DAILY 11/11/19 10/17/21 History cholecalciferol (vitamin D3) 25 25 mcg PO DAILY 10/17/21 10/17/21 History mcg (1,000 unit) tablet (Vitamin D3) cranberry extract 250 mg tablet 500 mg PO DAILY 10/17/21 10/17/21 History docusate sodium 100 mg tablet 100 mg PO HS 10/17/21 10/17/21 History doxycycline hyclate 100 mg tablet 100 mg PO [facility] 10/17/21 10/17/21 History fluticasone propionate 50 1 spray INTRANASAL [facility] 10/17/21 10/17/21 History mcg/actuation nasal spray,suspension (Flonase Allergy Relief) metoprolol tartrate 25 mg tablet 25 mg PO BID 10/17/21 10/17/21 History turmeric 400 mg capsule 400 mg PO AMPM 10/17/21 10/17/21 History Patient History Medical History (Updated 10/17/21 @ 13:59 by Junior Christian MD) Abdominal abscess Anemia Aortic valve sclerosis AV block, 1st degree CKD (chronic kidney disease) stage 3, GFR 30-59 ml/min Coronary artery calcification seen on computed tomography Degenerative arthritis of right knee Dyslipidemia Essential hypertension Hypertension Osteoporosis Overactive bladder Peripheral vascular disease Prediabetes Surgical History History of right knee joint replacement History of tonsillectomy and adenoidectomy S/P laparoscopy Diagnostic laparoscopy in 2019 Social History Smoking Status: Never smoker Second Hand Exposure: No; Do You Dip or Chew Tobacco: No; Tobacco Cessation Education Requested by Patient: No Hx Alcohol Use: Yes Alcohol type: wine Hx Substance Use: No Preferred Language: Yoruba Communication Ability: Effective Qual Field Manager Required: No Beliefs That Will Affect Care: None Current Living Situation: Alone Other Information That Helps Us Care for You: No Feels Safe at Home: Yes Safety Concerns: Feels Safe At This Time Assistive Devices: Cane and Hearing Aid - Bilateral Review of Systems Review of Systems: All systems reviewed & are unremarkable except as noted in HPI & below Physical Exam Constitutional: WD/WN, vitals as above Eyes: PERRL, conjunctivae normal, anicteric sclerae ENMT: external ear and nose normal, oropharynx normal Respiratory: Diminished lung sounds on the right. No increased work of breathing. Cardiovascular: RRR, no murmur, no edema Chest (Breasts): normal inspection/palpation of breasts Musculoskeletal: no cyanosis or clubbing, extremities motor strength 5/5 Skin: no rashes, warm and dry Neurologic: PERRL, EOMI, accommodation nl, no face palsy, no dysarthria Psychiatric: A+Ox3, euthymic affect Results & Data Results & Data ([facility]) Vital Signs (Past 12 Hours) Vital Signs Temp Pulse Pulse Pulse Resp BP Pulse Ox 10/18/21 12:20 36.6 C 73 18 96 10/18/21 08:59 36.8 C 76 18 158/74 H 97 10/18/21 07:35 75 10/18/21 06:53 36.8 C 67 18 166/71 H 93 10/18/21 04:23 36.6 C 67 18 168/87 H 92 PG Care Time/CCT Total # of Minutes Spent Total Time Spent with Patient: Total time spent is greater than 50% in coordination of care (as documented) at patient's floor/unit and/or counseling patient: Coding Level of Care Code 86583 Initial Inpt Care Lvl 3 Diagnoses Large pleural effusion J90 SOB (shortness of breath) R06.02
[2021-10-18 14:24] LABS: Appearance Pleural Fluid HAZY; Color Pleural Fluid AMBER; RBC Pleural Fluid (A) 11000 /uL; Source Pleural Fluid RIGHT LUNG; WBC Pleural Fluid (A) 1332 /uL
[2021-10-18 15:13] LABS: Basophils, Fluid 0 %; Eosinophils, Fluid 2 %; Lymphocytes, Fluid 80 %; Mono,Macrophage,Mesothelial 17 %; Neutrophils, Fluid 1 %
--- NOTE | 2021-10-18 15:36 | Hospitalist Progress Note ---
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 No pericardial effusion Appreciate pulmonary input and status post thoracentesis-further studies pending on thoracentesis fluid Appeared to be malignant as per the compensation and benefits manager Repeat chest x-ray showed much improvement of the effusion She has been feeling much better Incentive spirometry (2) KENT (dyspnea on exertion): Plan: Has been feeling much better after thoracentesis (3) Prediabetes: Plan: Check A1c in AM-5.9 (4) Dyslipidemia: (5) Essential hypertension: Plan: Blood pressure remains on the upper side at 158/74 (6) CKD (chronic kidney disease) stage 3, GFR 30-59 ml/min: Plan: Stable Plan: Continue other home medications as appropriate. Code Status: full code DVT prophylaxis: subQ heparin Admission and Anticipated Discharge Date Admission Date: October 17, 2021 Subjective 10/18/2021 The patient was seen and examined in telemetry unit She has been complaining of progressive shortness of breath with weight loss for the last 3 months She denies any abdominal pain or chest pain, any nausea or vomiting She was sent in from primary care's office with abnormal chest x-ray and CAT s can Remains anxious and has shortness of breath with minimal exertion Review of Systems Review of Systems: All systems reviewed and are unremarkable except as noted below Respiratory: Mild to moderate shortness of breath at rest Physical Exam Physical Exam: Lying in bed with minimal shortness of breath Constitutional: + ill appearing and average body habitus Eyes: PERRL, conjunctivae normal, anicteric sclerae ENMT: external ear and nose normal, oropharynx normal Neck: trachea midline, no thyromegaly Respiratory: normal respiratory effort, lungs clear to auscultation + respiratory distress Auscultation: + diminished lung sounds (Right base) and + crackles (Right base) Cardiovascular: Rate/Rhythm: regular rate and regular rhythm; not tachycardic Heart Sounds: normal S1, normal S2 and + murmur Gastrointestinal (Abdomen): Inspection/Auscultation: normal bowel sounds; abdomen not distended Percussion/Palpation: abdomen soft; abdomen nontender Musculoskeletal: No acute arthritis in any joint Neurologic: Alert, awake and oriented x3. No focal sensory or no motor deficit appreciated Lymphatic: no cervical or axillary lymphadenopathy Results & Data Results & Data ([facility]) Vital Signs (Past 12 Hours) Vital Signs Temp Pulse Pulse Pulse Resp BP Pulse Ox 10/18/21 15:04 71 10/18/21 12:20 36.6 C 73 18 96 10/18/21 08:59 36.8 C 76 18 158/74 H 97 10/18/21 08:00 71 10/18/21 07:35 75 10/18/21 06:53 36.8 C 67 18 166/71 H 93 10/18/21 04:23 36.6 C 67 18 168/87 H 92 Laboratory Results Short CBC 10/18/21 Range/Units 05:48 WBC 3.50 L (4.8-10.8) K/uL Hgb 11.6 L (12.0-16.0) g/dL Hct 35.6 L (37-47) % Plt Count 248 (130-400) K/uL BMP 10/18/21 05:48 Sodium 134 L Potassium 4.2 Chloride 99 Carbon Dioxide 28 BUN 27 H Creatinine 0.93 Glucose 106 H Calcium 8.9 Urine 10/17/21 Range/Units 15:00 Urine Color Yellow Urine Appearance Clear (Clear) Urine pH 7.5 (4.5-7.5) Ur Specific [place] 1.012 (1.000-1.030) Urine Protein Negative (Negative) Urine Glucose (UA) Negative (Negative) Medications Administered Current Inpatient Medications Acetaminophen (Acetaminophen 325 Mg Tab) 650 mg PO Q4H PRN PRN Reason: Pain or Fever Stop: 11/16/21 16:31 Albuterol (Albut/Ipratrop 3mg/0.5mg Neb 3 Ml Vial) 3 ml NEB QID PRN; Protocol PRN Reason: Shortness Of Breath Or Wheezing Stop: 11/16/21 16:31 Aspirin (Aspirin 81 Mg Ectab) 81 mg PO HS CRISTÓBAL Stop: 11/16/21 20:59 Last Admin: 10/17/21 20:33 Dose: 81 mg Documented by: Atorvastatin Calcium (Atorvastatin 10 Mg Tab) 10 mg PO QAM [facility] Stop: 11/17/21 08:59 Last Admin: 10/18/21 08:57 Dose: 10 mg Documented by: Diltiazem HCl (Diltiazem Hcl 120 Mg Capcr) 120 mg PO QAM [facility] Stop: 11/17/21 08:59 Docusate Sodium (Docusate Sodium 100 Mg Cap) 100 mg PO HS CRISTÓBAL Stop: 11/16/21 20:59 Last Admin: 10/17/21 20:34 Dose: 100 mg Documented by: Doxycycline Hyclate (Doxycycline Hyclate 100 Mg Cap) 100 mg PO BID [facility] Stop: 10/23/21 23:59 Last Admin: 10/18/21 08:56 Dose: 100 mg Documented by: Fluticasone Propionate (Fluticasone Propionate Na Spr 16 Gm Btl) 1 sprays NA BID CRISTÓBAL Stop: 11/16/21 20:59 Last Admin: 10/18/21 07:26 Dose: Not Given Documented by: Heparin Sodium (Porcine) (Heparin Sod 5,000 Unit/0.5 Ml Vial) 5,000 units SQ Q12 [facility] Stop: 11/16/21 20:59 Last Admin: 10/18/21 13:27 Dose: Not Given Documented by: Lisinopril (Lisinopril 10 Mg Tab) 30 mg PO DAILY [facility] Stop: 11/17/21 08:59 Last Admin: 10/18/21 08:57 Dose: 30 mg Documented by: Magnesium Oxide (Magnesium Oxide 400 Mg Tab) 400 mg PO DAILY [facility] Stop: 11/17/21 08:59 Last Admin: 10/18/21 08:09 Dose: Not Given Documented by: Metoprolol Tartrate (Metoprolol Tartrate 25 Mg Tab) 25 mg PO BID [facility] Stop: 11/16/21 20:59 Last Admin: 10/17/21 20:34 Dose: 25 mg Documented by: Nitroglycerin (Nitroglycerin Sl 0.4 Mg/Tab Tab) 0.4 mg SL UD PRN PRN Reason: Chest Pain Stop: 11/16/21 16:31 Vitamin D (Cholecalciferol 1,000 Units 25 Mcg Tab) 1,000 units PO DAILY [facility] Stop: 11/17/21 08:59 Last Admin: 10/18/21 07:30 Dose: Not Given Documented by:
--- NOTE | 2021-10-18 15:48 | Electrocardiogram Report ---
Test Reason : Blood Pressure : / mmHG Vent. Rate : 059 BPM Atrial Rate : 059 BPM P-R Int : 000 ms QRS Dur : 082 ms QT Int : 474 ms P-R-T Axes : 000 046 065 degrees QTc Int : 469 ms Sinus bradycardia with 2nd degree A-V block (Mobitz I) Otherwise normal ECG When compared with ECG of 17-OCT-2021 11:41, No significant change Confirmed by Kory Black ([id number]) on 10/18/2021 3:48:03 PM Referred By: REFERRED SELF Confirmed By:Kory Black
--- NOTE | 2021-10-19 08:27 | Discharge Summary ---
Date of Service October 18, 2021 Admission HPI Per Admitting Provider This is an 86 y/o female with a PMH of CKD3, HTN, PVD, 1st degree AV block, dyslipidemia, prediabetes, and arthritis who presents to the ED today after she saw PCP yesterday for worsening shortness of breath and fatigue with exertion over the last several weeks. Symptoms seem to resolve with rest but are impacting pt's quality of life because limited ability to do anything. She has not had associated chest pain with exertion. CXR done in office yesterday was abnormal so CT chest ordered and showed large right pleural effusion - pt send to ED for additional evaluation. Now being referred for admission for potential thoracentesis and evaluation by pulmonology. Pt first noticed symptoms in August but is unsure if they were present prior to that because she was taking care of her partner before he in July. Initially, she attributed symptoms to being deconditioned but then noted the breathing difficulties so decided to be evaluated further. She has noted overall weakness and fatigue, loss of appetite, and 5 lb wt loss over the past four months. She has ongoing issues with sinus drainage, nasal congestion, and non-productive cough. She was started on doxycycline for possible sinus infection and Flonase for the congestion yesterday. She thinks that the Flonase may already be helping. She denies chest pain, fevers, chills, night sweats, N/V, abdominal pain, change in bowels, difficulty urinating, diarrhea. She is unsure when she had her last mammogram. Reports that she has had screening colonoscopies but is unsure when the last one was. Admission Exam Per Admitting Provider Constitutional: + thin and + frail appearing; no acute d istress Eyes: + anicteric sclerae Neck: trachea midline Respiratory: no respiratory distress Auscultation: + diminished lung sounds (right lower lung, otherwise clear) Cardiovascular: Rate/Rhythm: regular rate and regular rhythm Vessels: radial pulses present Extremities: no pedal edema Gastrointestinal (Abdomen): Inspection/Auscultation: normal bowel sounds; abdomen not distended Percussion/Palpation: abdomen soft; abdomen nontender Musculoskeletal: Head/Neck/Chest: normocephalic, head atraumatic and neck supple Extremities: no cyanosis Skin: no jaundice Neurologic: moves all extremities; no focal motor deficits Psychiatric: A+Ox3, euthymic affect Principal Diagnosis Right Pleural effusion Discharge Exam Lying in bed with minimal shortness of breath Constitutional + ill appearing and average body habitus Eyes PERRL, conjunctivae normal, anicteric sclerae ENMT external ear and nose normal, oropharynx normal Neck trachea midline, no thyromegaly Respiratory normal respiratory effort, lungs clear to auscultation + respiratory distress Auscultation: + diminished lung sounds (Right base) and + crackles (Right base) Cardiovascular Rate/Rhythm: regular rate and regular rhythm; not tachycardic Heart Sounds: normal S1, normal S2 and + murmur Gastrointestinal (Abdomen) Inspection/Auscultation: normal bowel sounds; abdomen not distended Percussion/Palpation: abdomen soft; abdomen nontender Lymphatic no cervical or axillary lymphadenopathy Discharge Data Allergies Allergy/AdvReac Type Severity Reaction Status Date / Time aspirin AdvReac Intermediate stomach Verified 10/17/21 19:21 irritation oxycodone AdvReac Nausea Verified 10/17/21 13:50 Consultations 10/17/21 12:43 ED Decision to Admit Stat 10/17/21 16:32 Consult Pulmonology Routine 10/18/21 08:00 Consult Cardiology Routine Ordered Studies 10/17/21 16:32 CT abdomen pelvis wo/w con Routine 10/18/21 11:42 US point of care ultrasound Urgent Hospital Course (1) Large pleural effusion: 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 No pericardial effusion Appreciate pulmonary input and status post thoracentesis-further studies pending on thoracentesis fluid Appeared to be malignant as per the barrel filler Repeat chest x-ray showed much improvement of the effusion She has been feeling much better Incentive spirometry (2) KENT (dyspnea on exertion): Has been feeling much better after thoracentesis (3) Prediabetes: Check A1c in AM-5.9 (4) Dyslipidemia: (5) Essential hypertension: Blood pressure remains on the upper side at 158/74 (6) CKD (chronic kidney disease) stage 3, GFR 30-59 ml/min: Stable Continue other home medications as appropriate. Code Status: full code DVT prophylaxis: subQ heparin Total Time Total Time Spent Total Time Spent (In Minutes): 20 minutes Discharge Plan Discharge Items Patient Disposition: Against Medical Advice Reason For Visit: KENT, LARGE PLEURAL EFFUSION Follow-up/Referrals: Melissa Paniagua MD [Primary Care Provider] - Medications and DC Order Prescriptions: No Action atorvastatin 10 mg Tablet 10 mg PO QAM RF: 0 aspirin 81 mg Tablet,Delayed Release (Dr/Ec) 81 mg PO HS RF: 0 ascorbic acid (vitamin C) 500 mg Tablet 500 mg PO QAM RF: 0 diltiazem HCl [DILT-XR] 120 mg Capsule,Ext.Rel 24h Degradable 120 mg PO QAM RF: 0 lisinopril 30 mg Tablet 30 mg PO DAILY RF: 0 cyanocobalamin (vitamin B-12) [Vitamin B-12] 1,000 mcg Tablet 1,000 mcg PO DAILY RF: 0 magnesium 250 mg Tablet 250 mg PO DAILY RF: 0 metoprolol tartrate 25 mg Tablet 25 mg PO BID RF: 0 fluticasone propionate [Flonase Allergy Relief] 50 mcg/actuation Ida,Suspension 1 spray INTRANASAL AMHS RF: 0 doxycycline hyclate 100 mg Tablet 100 mg PO AMHS RF: 0 docusate sodium 100 mg Tablet 100 mg PO HS RF: 0 cranberry extract 250 mg Tablet 500 mg PO DAILY RF: 0 cholecalciferol (vitamin D3) [Vitamin D3] 25 mcg (1,000 unit) Tablet 25 mcg PO DAILY RF: 0 turmeric 400 mg Capsule 400 mg PO AMPM RF: 0 Discharge Orders: Left Against Medical Advice (Routine); Ordered 10/18/21 Ordered By: Janny Braswell Admission Data Admit Date/Time: 10/17/21 12:39 Attending Provider: Janny Braswell Admit Provider: Rufino Morel Primary Care Provider: Melissa Paniagua Other Providers: Rufino Morel ; Werner Baxter ; Jaison Vargas ; Bertrand Weber ; Sebastián Patricia ; Tadeo Mon ; Rajesh Rodrigues ; Marshall Stoddard ; Yvonne Kirkpatrick ; Yolande Laurent ; Ana Griffiths. ; Sarath Azul
== END 2021-10-18 16:30 | disposition left against medical advice (07) | DRG 375 ==
LOC: ED 10:53 → 2E 12:39 → SUATTDRO 12:39 → 2E 15:28